=== PATIENT | female | born 1940 | race Caucasian/White ===

== ENCOUNTER 2017-07-26 10:48 | Emergency (ER) | payer MEDICARE ==
[~2017-07-26] VITALS: Ht 152.4 cm; Wt 84.0 kg
[~2017-07-26 10:48] MED LIST: CLON-527 PO; CYCL-1 PO
[2017-07-26 10:51] VITALS: BP 179/115
[2017-07-26] MEDS ORDERED: diazepam 5mg tablet PO ONE (12:25)
[2017-07-26] MEDS ORDERED: ketorolac trometh. 30mg/ml inj. IM ONE (12:25)
[2017-07-26] MEDS ORDERED: NAPR-56 PO (12:46)
[2017-07-26] MEDS ORDERED: DIAZ2TAB PO (12:46)
== END 2017-07-26 13:00 | disposition home or self-care (01) ==
LOC: ER 10:50
DX: M25.512 Pain in left shoulder (principal); M62.838 Other muscle spasm; M54.2 Cervicalgia; I10 Essential (primary) hypertension; J45.909 Unspecified asthma, uncomplicated; F12.10 Cannabis abuse, uncomplicated; Z88.2 Allergy status to sulfonamides; Z88.8 Allergy status to other drugs, medicaments and biological substances
CPT/HCPCS: 96372; 99283; J1885

== ENCOUNTER 2017-08-04 16:47 | Inpatient (IN) | payer MEDICARE ==
[~2017-08-04] VITALS: Ht 152.4 cm; Wt 90.9 kg
[~2017-08-04 16:47] MED LIST changes: +DIAZ2TAB PO; +NAPR-56 PO
[2017-08-04] MEDS ORDERED: atenolol 50mg tablet PO ONE (17:25)
[2017-08-04 17:55] LABS: BASOPHILS % (AUTO) 0.4 % (0-1); EOSINOPHILS # (AUTO) 0.2 X10'3 (0-0.9); EOSINOPHILS % (AUTO) 3.8 % (0-6); HEMATOCRIT 36.9 % (35.0-45.0); LYMPHOCYTES # (AUTO) 1.5 X10'3 (1.1-4.8); LYMPHOCYTES % (AUTO) 25.1 % (21-51); MEAN CORPUSCULAR HEMOGLOBIN 30.3 PG (27.0-31.0); MEAN CORPUSCULAR HGB CONC 35.1 % (33.0-36.5); MEAN CORPUSCULAR VOLUME 86.5 FL (78-98); MEAN PLATELET VOLUME 7.4 FL (7.4-10.4); MONOCYTES # (AUTO) 0.6 X10'3 (0-0.9); MONOCYTES % (AUTO) 9.8 % (2-12); NEUTROPHILS # (AUTO) 3.6 X10'3 (1.8-7.7); NEUTROPHILS % (AUTO) 60.9 % (42-75); PLATELET COUNT 190 X10'3 (140-440); RED BLOOD COUNT 4.27 X10'6 (4.20-5.60); RED CELL DISTRIBUTION WIDTH 13.9 % (11.5-14.5); WHITE BLOOD COUNT 5.9 X10'3 (4.5-11.0)
[2017-08-04 18:09] LABS: ALANINE AMINOTRANSFERASE 16 U/L (12-78); ALBUMIN 3.6 G/DL (3.4-5.0); ALBUMIN/GLOBULIN RATIO 1.1 (1.1-1.5); ALKALINE PHOSPHATASE 72 IU/L (46-116); ANION GAP 8 (8-16); ASPARTATE AMINO TRANSFERASE 20 U/L (10-37); BILIRUBIN,TOTAL 0.4 MG/DL (0.1-1.0); BLOOD UREA NITROGEN 21 MG/DL (7-18); BUN/CREATININE RATIO 19.1 (6.6-38.0); CALCIUM 9.6 MG/DL (8.5-10.1); CHLORIDE 107 MMOL/L (99-107); GLUCOSE 101 MG/DL (70-104); POTASSIUM 3.3 MMOL/L (3.5-5.1); SODIUM 144 MMOL/L (135-145); TOTAL CARBON DIOXIDE 28.7 MMOL/L (24-32); TOTAL PROTEIN 6.9 G/DL (6.4-8.2); eGFR 48 ML/MIN
[2017-08-04] MEDS ORDERED: potassium Cl 20 mEq SR tablet PO ONE (18:25)
[2017-08-04] MEDS ORDERED: normal saline 1000ml 1,000 ML IV SCH (22:02)
[2017-08-04] MEDS ORDERED: potassium Cl 40MEQ/NS 500ml 500 ML IV PRN ×2 (22:05)
[2017-08-04] MEDS ORDERED: mag hydrox/Alum hydrox/simeth 30ml oral suspension PO PRN (22:05)
[2017-08-04] MEDS ORDERED: diphenhydrAMINE 50 mg/ml inj IV PRN (22:05)
[2017-08-04] MEDS ORDERED: diphenhydrAMINE 25mg capsule PO PRN (22:05)
[2017-08-04] MEDS ORDERED: diazepam 2mg tablet PO PRN (22:05)
[2017-08-04] MEDS ORDERED: potassium Cl 20 mEq SR tablet PO PRN ×2 (22:05)
[2017-08-04] MEDS ORDERED: cyclobenzaprine 10mg tablet PO PRN (22:05)
[2017-08-04] MEDS ORDERED: HYDROcodone/acetaminophen 10/325mg tab PO PRN (22:05)
[2017-08-04] MEDS ORDERED: acetaminophen 325mg tablet PO PRN ×2 (22:05)
[2017-08-04] MEDS ORDERED: magnesium hydroxide 30ml (MOM) UD suspension PO PRN (22:05)
[2017-08-04] MEDS ORDERED: morphine 2 MG/ML inj. syringe IV PRN ×2 (22:05)
[2017-08-04] MEDS ORDERED: ondansetron/PF 4mg/2ml inj IV PRN (22:05)
[2017-08-04] MEDS ORDERED: bisacodyl 10mg suppository rectal RC PRN (22:05)
[2017-08-04] MEDS ORDERED: acetaminophen 650mg rectal suppository RC PRN (22:05)
[2017-08-04] MEDS ORDERED: HYDROmorphone 2mg/ml vial IV PRN ×2 (22:05)
[2017-08-04] MEDS ORDERED: metoclopramide 5 mg/ml inj IV PRN (22:05)
[2017-08-04] MEDS ORDERED: lisinopril 10 MG tablet PO ONE (22:10)
[2017-08-04 22:35] LABS: LIPASE 313 U/L (73-393)
[2017-08-04 22:50] LABS: PARTIAL THROMBOPLASTIN TIME 25 SECONDS (22-32); PROTHROMBIN TIME 10.2 SECONDS (9.0-12.0)
[2017-08-04 23:00] VITALS: BP 180/106
[2017-08-05 01:54] LABS: CLARITY,URINE SLIGHTLY CLOUDY (Clear); COLOR,URINE YELLOW (Yellow); GLUCOSE, URINE NEGATIVE (Neg); KETONES,URINE NEGATIVE (Neg); LEUKOCYTE ESTERASE ,URINE MODERATE (Neg); NITRITES, URINE POSITIVE (Neg); OCCULT BLOOD,URINE TRACE-INTACT (Neg); PROTEIN,URINE NEGATIVE (Neg); UROBILINOGEN,URINE 0.2 E.U/dL (0.2-1.0)
[2017-08-05 02:00] VITALS: BP 178/84
[2017-08-05 02:00] LABS: UA COLLECTION TYPE CLN CATCH MIDSTREAM
[2017-08-05 02:08] LABS: URINE AMPHETAMINE SCREEN NEGATIVE (Neg); URINE BARBITUATE SCREEN NEGATIVE (Neg); URINE BENZODIAZEPINES SCREEN NEGATIVE (Neg); URINE CANNABINOID SCREEN POSITIVE (Neg); URINE COCAINE SCREEN NEGATIVE (Neg); URINE METHADONE SCREEN NEGATIVE (Neg); URINE OPIATE SCREEN NEGATIVE (Neg); URINE PHENCYCLIDINE SCREEN NEGATIVE (Neg)
[2017-08-05 02:16] LABS: BACTERIA,URINE 4+ /HPF (Neg); MUCUS STRANDS FEW /LPF (Neg); SQUAMOUS EPITHELIAL CELL,UR MODERATE /LPF (FEW)
[2017-08-05 02:17] LABS: RBC,URINE 0-2 /HPF (0-2)
[2017-08-05] MEDS: hydrALAZINE 20mg/ml inj. IV PRN (02:17)
[2017-08-05] MEDS ORDERED: cefTRIAXone 1g/NS 100ml IVPB 100 ML IV SCH (02:52)
[2017-08-05 02:53] VITALS: BP 136/82
[2017-08-05] MEDS ORDERED: dexamethasone sod phosphate 10mg/ml inj IV STA (05:02)
[2017-08-05 06:00] VITALS: BP 156/84
[2017-08-05 06:44] LABS: BASOPHILS % (AUTO) 0.3 % (0-1); EOSINOPHILS # (AUTO) 0.2 X10'3 (0-0.9); EOSINOPHILS % (AUTO) 3.3 % (0-6); HEMATOCRIT 38.9 % (35.0-45.0); HEMOGLOBIN 13.8 g/dl (12.0-16.0); LYMPHOCYTES # (AUTO) 1.5 X10'3 (1.1-4.8); LYMPHOCYTES % (AUTO) 23.6 % (21-51); MEAN CORPUSCULAR HEMOGLOBIN 30.2 PG (27.0-31.0); MEAN CORPUSCULAR HGB CONC 35.4 % (33.0-36.5); MEAN CORPUSCULAR VOLUME 85.4 FL (78-98); MONOCYTES # (AUTO) 0.6 X10'3 (0-0.9); MONOCYTES % (AUTO) 8.6 % (2-12); NEUTROPHILS # (AUTO) 4.2 X10'3 (1.8-7.7); NEUTROPHILS % (AUTO) 64.2 % (42-75); PLATELET COUNT 210 X10'3 (140-440); RED BLOOD COUNT 4.55 X10'6 (4.20-5.60); RED CELL DISTRIBUTION WIDTH 13.9 % (11.5-14.5); WHITE BLOOD COUNT 6.5 X10'3 (4.5-11.0)
[2017-08-05] MEDS ORDERED: levoTHYROXINE 75mcg tablet PO SCH (07:00)
[2017-08-05] MEDS: heparin, porcine 5000 units/ml vial SQ SCH ×2 (07:06→20:03)
[2017-08-05] MEDS: pantoprazole 40mg Tablet.DR PO SCH (07:06)
[2017-08-05] MEDS: clonazePAM 1mg tablet PO SCH ×3 (07:06→20:03)
[2017-08-05 07:16] LABS: ALANINE AMINOTRANSFERASE 21 U/L (12-78); ALBUMIN 3.9 G/DL (3.4-5.0); ALBUMIN/GLOBULIN RATIO 1.1 (1.1-1.5); ALKALINE PHOSPHATASE 77 IU/L (46-116); ANION GAP 11 (8-16); ASPARTATE AMINO TRANSFERASE 21 U/L (10-37); BILIRUBIN,TOTAL 0.5 MG/DL (0.1-1.0); BLOOD UREA NITROGEN 19 MG/DL (7-18); BUN/CREATININE RATIO 15.8 (6.6-38.0); CALCIUM 9.4 MG/DL (8.5-10.1); CHLORIDE 105 MMOL/L (99-107); GLUCOSE 102 MG/DL (70-104); POTASSIUM 3.5 MMOL/L (3.5-5.1); SODIUM 143 MMOL/L (135-145); TOTAL CARBON DIOXIDE 26.7 MMOL/L (24-32); TOTAL PROTEIN 7.3 G/DL (6.4-8.2); eGFR 44 ML/MIN
[2017-08-05] MEDS: cefTRIAXone 1g/NS 100ml IVPB 100 ML IV SCH (07:49)
[2017-08-05] MEDS: K and/or MAG REPLACEMENT MC SCH (08:00)
[2017-08-05 10:00] VITALS: BP 145/88
[2017-08-05] MEDS: lisinopril 20mg tablet PO SCH (15:38)
[2017-08-05] MEDS: HYDROcodone/acetaminophen 5mg/325mg tablet PO PRN ×2 (15:39→20:02)
[2017-08-05 18:00] VITALS: BP 140/81
[2017-08-05 22:00] VITALS: BP 132/77
[2017-08-06 05:47] LABS: BASOPHILS % (AUTO) 0.3 % (0-1); EOSINOPHILS # (AUTO) 0.1 X10'3 (0-0.9); EOSINOPHILS % (AUTO) 1.5 % (0-6); HEMATOCRIT 32.4 % (35.0-45.0); HEMOGLOBIN 11.5 g/dl (12.0-16.0); LYMPHOCYTES # (AUTO) 1.7 X10'3 (1.1-4.8); LYMPHOCYTES % (AUTO) 19.8 % (21-51); MEAN CORPUSCULAR HEMOGLOBIN 30.5 PG (27.0-31.0); MEAN CORPUSCULAR HGB CONC 35.4 % (33.0-36.5); MEAN CORPUSCULAR VOLUME 86.2 FL (78-98); MEAN PLATELET VOLUME 8.1 FL (7.4-10.4); MONOCYTES # (AUTO) 0.6 X10'3 (0-0.9); MONOCYTES % (AUTO) 7.1 % (2-12); NEUTROPHILS % (AUTO) 71.3 % (42-75); PLATELET COUNT 179 X10'3 (140-440); RED BLOOD COUNT 3.76 X10'6 (4.20-5.60); RED CELL DISTRIBUTION WIDTH 13.4 % (11.5-14.5); WHITE BLOOD COUNT 8.4 X10'3 (4.5-11.0)
[2017-08-06 06:00] VITALS: BP 143/69
[2017-08-06 06:26] LABS: ALANINE AMINOTRANSFERASE 22 U/L (12-78); ALBUMIN 3.4 G/DL (3.4-5.0); ALBUMIN/GLOBULIN RATIO 1.1 (1.1-1.5); ALKALINE PHOSPHATASE 62 IU/L (46-116); ANION GAP 9 (8-16); ASPARTATE AMINO TRANSFERASE 20 U/L (10-37); BILIRUBIN,TOTAL 0.3 MG/DL (0.1-1.0); BLOOD UREA NITROGEN 32 MG/DL (7-18); BUN/CREATININE RATIO 24.6 (6.6-38.0); CALCIUM 9.1 MG/DL (8.5-10.1); CHLORIDE 106 MMOL/L (99-107); GLUCOSE 95 MG/DL (70-104); POTASSIUM 3.6 MMOL/L (3.5-5.1); SODIUM 141 MMOL/L (135-145); TOTAL CARBON DIOXIDE 25.8 MMOL/L (24-32); TOTAL PROTEIN 6.5 G/DL (6.4-8.2); eGFR 40 ML/MIN
[2017-08-06] MEDS: K and/or MAG REPLACEMENT MC SCH (07:34)
[2017-08-06] MEDS: pantoprazole 40mg Tablet.DR PO SCH (07:42)
[2017-08-06] MEDS: levoTHYROXINE 100mcg tablet PO SCH (07:42)
[2017-08-06] MEDS: clonazePAM 1mg tablet PO SCH ×3 (07:42→22:07)
[2017-08-06] MEDS: lisinopril 20mg tablet PO SCH (07:43)
[2017-08-06] MEDS: heparin, porcine 5000 units/ml vial SQ SCH ×2 (07:43→20:39)
[2017-08-06] MEDS: cefTRIAXone 1g/NS 100ml IVPB 100 ML IV SCH (07:44)
[2017-08-06 09:18] LABS: TRIIODOTHYRONINE (T3) 47 ng/dL (71-180)
[2017-08-06 10:30] VITALS: BP 154/67
[2017-08-06] MEDS: HYDROcodone/acetaminophen 5mg/325mg tablet PO PRN (11:47)
[2017-08-06 17:17] VITALS: BP 167/108
[2017-08-06] MEDS: lactobacillus rhamnosus 10,000 MMU CELLS/CAPSULE PO SCH (17:19)
[2017-08-06] MEDS: hydrALAZINE 20mg/ml inj. IV PRN (17:19)
[2017-08-06] MEDS: aspirin 81mg tablet.DR PO SCH (17:52)
[2017-08-06 18:00] VITALS: BP 167/108
[2017-08-06 20:09] LABS: CHOL/HDL RATIO 8.1 (0.00-4.99); CHOLESTEROL 275 MG/DL (0-200); HDL CHOLESTEROL 34 MG/DL (35-60); LDL CHOLESTEROL 180 MG/DL (50-100); TRIGLYCERIDES 316 MG/DL (20-135)
[2017-08-06 22:10] VITALS: BP 153/86
[2017-08-07 02:30] VITALS: BP 156/89
[2017-08-07 07:06] LABS: BASOPHILS % (AUTO) 0.3 % (0-1); EOSINOPHILS # (AUTO) 0.2 X10'3 (0-0.9); EOSINOPHILS % (AUTO) 3.1 % (0-6); HEMATOCRIT 37.1 % (35.0-45.0); HEMOGLOBIN 13.1 g/dl (12.0-16.0); LYMPHOCYTES # (AUTO) 1.8 X10'3 (1.1-4.8); LYMPHOCYTES % (AUTO) 27.8 % (21-51); MEAN CORPUSCULAR HEMOGLOBIN 30.5 PG (27.0-31.0); MEAN CORPUSCULAR HGB CONC 35.4 % (33.0-36.5); MEAN CORPUSCULAR VOLUME 86.1 FL (78-98); MEAN PLATELET VOLUME 8.2 FL (7.4-10.4); MONOCYTES # (AUTO) 0.5 X10'3 (0-0.9); MONOCYTES % (AUTO) 7.6 % (2-12); NEUTROPHILS % (AUTO) 61.2 % (42-75); PLATELET COUNT 188 X10'3 (140-440); RED BLOOD COUNT 4.31 X10'6 (4.20-5.60); RED CELL DISTRIBUTION WIDTH 13.7 % (11.5-14.5); WHITE BLOOD COUNT 6.5 X10'3 (4.5-11.0)
[2017-08-07 07:40] LABS: ALANINE AMINOTRANSFERASE 33 U/L (12-78); ALBUMIN 3.7 G/DL (3.4-5.0); ALBUMIN/GLOBULIN RATIO 1.1 (1.1-1.5); ALKALINE PHOSPHATASE 70 IU/L (46-116); ANION GAP 11 (8-16); ASPARTATE AMINO TRANSFERASE 26 U/L (10-37); BILIRUBIN,TOTAL 0.3 MG/DL (0.1-1.0); BLOOD UREA NITROGEN 24 MG/DL (7-18); BUN/CREATININE RATIO 21.8 (6.6-38.0); CALCIUM 8.9 MG/DL (8.5-10.1); CHLORIDE 105 MMOL/L (99-107); GLUCOSE 82 MG/DL (70-104); POTASSIUM 3.4 MMOL/L (3.5-5.1); SODIUM 143 MMOL/L (135-145); TOTAL CARBON DIOXIDE 26.9 MMOL/L (24-32); TOTAL PROTEIN 7.1 G/DL (6.4-8.2); eGFR 48 ML/MIN
[2017-08-07] MEDS: K and/or MAG REPLACEMENT MC SCH (08:00)
[2017-08-07] MEDS: aspirin 81mg tablet.DR PO SCH (09:07)
[2017-08-07] MEDS: lactobacillus rhamnosus 10,000 MMU CELLS/CAPSULE PO SCH ×2 (09:07→17:19)
[2017-08-07] MEDS: lisinopril 20mg tablet PO SCH (09:07)
[2017-08-07] MEDS: heparin, porcine 5000 units/ml vial SQ SCH ×2 (09:07→20:50)
[2017-08-07] MEDS: clonazePAM 1mg tablet PO SCH ×3 (09:07→20:48)
[2017-08-07] MEDS: cefTRIAXone 1g/NS 100ml IVPB 100 ML IV SCH (09:07)
[2017-08-07] MEDS: amLODIPine 5mg tablet PO SCH (09:08)
[2017-08-07] MEDS: pantoprazole 40mg Tablet.DR PO SCH (09:08)
[2017-08-07] MEDS: levoTHYROXINE 100mcg tablet PO SCH (09:08)
[2017-08-07 10:00] VITALS: BP 145/91
[2017-08-07] MEDS ORDERED: CefTRIAXone/D5W-Rocephin 1gm 50 ML IV SCH (11:56)
[2017-08-07 18:00] VITALS: BP 129/79
[2017-08-07 22:00] VITALS: BP 138/71
[2017-08-08 02:00] VITALS: BP 106/63
[2017-08-08 06:50] LABS: BASOPHILS % (AUTO) 0.8 % (0-1); EOSINOPHILS # (AUTO) 0.3 X10'3 (0-0.9); EOSINOPHILS % (AUTO) 5.6 % (0-6); HEMATOCRIT 35.6 % (35.0-45.0); HEMOGLOBIN 12.6 g/dl (12.0-16.0); LYMPHOCYTES # (AUTO) 1.2 X10'3 (1.1-4.8); LYMPHOCYTES % (AUTO) 24.7 % (21-51); MEAN CORPUSCULAR HEMOGLOBIN 30.4 PG (27.0-31.0); MEAN CORPUSCULAR HGB CONC 35.4 % (33.0-36.5); MEAN CORPUSCULAR VOLUME 85.8 FL (78-98); MEAN PLATELET VOLUME 7.8 FL (7.4-10.4); MONOCYTES # (AUTO) 0.5 X10'3 (0-0.9); MONOCYTES % (AUTO) 9.1 % (2-12); NEUTROPHILS % (AUTO) 59.8 % (42-75); PLATELET COUNT 166 X10'3 (140-440); RED BLOOD COUNT 4.15 X10'6 (4.20-5.60); RED CELL DISTRIBUTION WIDTH 13.9 % (11.5-14.5)
[2017-08-08 07:29] LABS: ALANINE AMINOTRANSFERASE 31 U/L (12-78); ALBUMIN 3.3 G/DL (3.4-5.0); ALKALINE PHOSPHATASE 68 IU/L (46-116); ANION GAP 8 (8-16); ASPARTATE AMINO TRANSFERASE 24 U/L (10-37); BILIRUBIN,TOTAL 0.3 MG/DL (0.1-1.0); BLOOD UREA NITROGEN 24 MG/DL (7-18); CALCIUM 8.7 MG/DL (8.5-10.1); CHLORIDE 105 MMOL/L (99-107); GLUCOSE 96 MG/DL (70-104); POTASSIUM 3.7 MMOL/L (3.5-5.1); SODIUM 138 MMOL/L (135-145); TOTAL CARBON DIOXIDE 25.2 MMOL/L (24-32); TOTAL PROTEIN 6.5 G/DL (6.4-8.2); eGFR 44 ML/MIN
[2017-08-08] MEDS: K and/or MAG REPLACEMENT MC SCH (07:36)
[2017-08-08] MEDS: lactobacillus rhamnosus 10,000 MMU CELLS/CAPSULE PO SCH (07:44)
[2017-08-08] MEDS: levoTHYROXINE 100mcg tablet PO SCH (07:44)
[2017-08-08] MEDS: pantoprazole 40mg Tablet.DR PO SCH (07:44)
[2017-08-08] MEDS: lisinopril 20mg tablet PO SCH (07:44)
[2017-08-08] MEDS: heparin, porcine 5000 units/ml vial SQ SCH (07:44)
[2017-08-08] MEDS: amLODIPine 5mg tablet PO SCH (07:44)
[2017-08-08] MEDS: aspirin 81mg tablet.DR PO SCH (07:44)
[2017-08-08] MEDS: clonazePAM 1mg tablet PO SCH ×2 (07:48→13:58)
[2017-08-08] MEDS ORDERED: atorvastatin 20mg tablet PO SCH (08:00)
[2017-08-08 10:00] VITALS: BP 160/102
[2017-08-08] MEDS ORDERED: ASPI-1071 PO (11:49)
[2017-08-08] MEDS ORDERED: LEVO100T9 PO (11:49)
[2017-08-08] MEDS ORDERED: LISI-600 PO (11:49)
[2017-08-08] MEDS ORDERED: ATOR20TA66 PO (11:49)
[2017-08-08] MEDS ORDERED: AMLO5TAB16 PO (11:49)
[2017-08-08] MEDS ORDERED: LEVO500T2 PO (12:06)
== END 2017-08-08 15:30 | disposition home or self-care (01) | DRG 70 ==
LOC: ER 16:48 → EEVIPCON 22:02 → ED HOLD 22:02 → ORTHO 4S 22:56
PROVIDERS: ADMIT Family Medicine; ATTEND Family Medicine
DX: G93.40 Encephalopathy, unspecified (principal); I63.9 Cerebral infarction, unspecified; N17.9 Acute kidney failure, unspecified; I16.1 Hypertensive emergency; N39.0 Urinary tract infection, site not specified; E87.6 Hypokalemia; E03.9 Hypothyroidism, unspecified; F31.9 Bipolar disorder, unspecified; B96.20 Unspecified Escherichia coli [E. coli] as the cause of diseases classified elsewhere; F41.9 Anxiety disorder, unspecified; E78.5 Hyperlipidemia, unspecified; E86.0 Dehydration; I12.9 Hypertensive chronic kidney disease with stage 1 through stage 4 chronic kidney disease, or unspecified chronic kidney disease; J45.909 Unspecified asthma, uncomplicated; N18.9 Chronic kidney disease, unspecified; F12.90 Cannabis use, unspecified, uncomplicated; W03.XXXA Other fall on same level due to collision with another person, initial encounter; Z90.710 Acquired absence of both cervix and uterus; Z91.14 Patient's other noncompliance with medication regimen; Z91.19 Patient's noncompliance with other medical treatment and regimen; Z88.2 Allergy status to sulfonamides; Z88.8 Allergy status to other drugs, medicaments and biological substances; Z79.899 Other long term (current) drug therapy; Y08.89XA Assault by other specified means, initial encounter; Y93.89 Activity, other specified; Y92.89 Other specified places as the place of occurrence of the external cause; Y99.8 Other external cause status
CPT/HCPCS: 36415; 70450; 70551; 71045; 80053; 80061; 80305; 81001; 83690; 83735; 83880; 84439; 84443; 84479; 84480; 85025; 85610; 85730; 87070; 87077; 87088; 87186; 93306; 93880; 97116; 97162; 97530; 99285; J0360; J0696; J1100; J1644; J7030

== ENCOUNTER 2017-08-12 16:28 | Emergency (ER) | payer MEDICARE ==
[~2017-08-12] VITALS: Ht 152.4 cm; Wt 84.1 kg
[~2017-08-12 16:28] MED LIST changes: +AMLO5TAB16 PO; +ASPI-1071 PO; +ATOR20TA66 PO; -CLON-527 PO; +LEVO100T9 PO; +LEVO500T2 PO; +LISI-600 PO; -NAPR-56 PO
[2017-08-12 17:00] LABS: BASOPHILS % (AUTO) 0.5 % (0-1); EOSINOPHILS # (AUTO) 0.2 X10'3 (0-0.9); EOSINOPHILS % (AUTO) 3.2 % (0-6); HEMATOCRIT 37.6 % (35.0-45.0); HEMOGLOBIN 13.1 g/dl (12.0-16.0); LYMPHOCYTES # (AUTO) 1.7 X10'3 (1.1-4.8); MEAN CORPUSCULAR HEMOGLOBIN 30.4 PG (27.0-31.0); MEAN CORPUSCULAR HGB CONC 34.8 % (33.0-36.5); MEAN CORPUSCULAR VOLUME 87.4 FL (78-98); MEAN PLATELET VOLUME 7.7 FL (7.4-10.4); MONOCYTES # (AUTO) 0.6 X10'3 (0-0.9); MONOCYTES % (AUTO) 8.7 % (2-12); NEUTROPHILS # (AUTO) 4.8 X10'3 (1.8-7.7); NEUTROPHILS % (AUTO) 64.6 % (42-75); PLATELET COUNT 206 X10'3 (140-440); RED CELL DISTRIBUTION WIDTH 13.7 % (11.5-14.5); WHITE BLOOD COUNT 7.4 X10'3 (4.5-11.0)
[2017-08-12 17:12] LABS: PARTIAL THROMBOPLASTIN TIME 24 SECONDS (22-32); PROTHROMBIN TIME 9.9 SECONDS (9.0-12.0)
[2017-08-12 17:17] LABS: ALANINE AMINOTRANSFERASE 30 U/L (12-78); ALBUMIN 4.2 G/DL (3.4-5.0); ALBUMIN/GLOBULIN RATIO 1.2 (1.1-1.5); ALKALINE PHOSPHATASE 81 IU/L (46-116); ANION GAP 9 (8-16); ASPARTATE AMINO TRANSFERASE 22 U/L (10-37); BILIRUBIN,TOTAL 0.4 MG/DL (0.1-1.0); BLOOD UREA NITROGEN 22 MG/DL (7-18); CALCIUM 9.7 MG/DL (8.5-10.1); CHLORIDE 108 MMOL/L (99-107); GLUCOSE 100 MG/DL (70-104); POTASSIUM 3.7 MMOL/L (3.5-5.1); SODIUM 144 MMOL/L (135-145); TOTAL CARBON DIOXIDE 27.2 MMOL/L (24-32); TOTAL PROTEIN 7.8 G/DL (6.4-8.2); eGFR 54 ML/MIN
[2017-08-12] MEDS ORDERED: hydrALAZINE 25 MG tablet PO SCH (17:40)
[2017-08-12] MEDS ORDERED: hydrALAZINE 25 MG tablet PO ONE (17:40)
[2017-08-12] MEDS ORDERED: LORazepam 1 MG tablet PO ONE (17:40)
[2017-08-12 19:00] VITALS: BP 188/102
== END 2017-08-12 19:01 | disposition home or self-care (01) ==
LOC: ER 16:28
DX: I10 Essential (primary) hypertension (principal); F41.9 Anxiety disorder, unspecified; F31.9 Bipolar disorder, unspecified; F12.10 Cannabis abuse, uncomplicated; J45.909 Unspecified asthma, uncomplicated; Z90.710 Acquired absence of both cervix and uterus; Z86.73 Personal history of transient ischemic attack (TIA), and cerebral infarction without residual deficits; Z88.8 Allergy status to other drugs, medicaments and biological substances; Z88.2 Allergy status to sulfonamides; Z79.82 Long term (current) use of aspirin; Z79.899 Other long term (current) drug therapy
CPT/HCPCS: 36415; 71045; 80053; 84484; 85025; 85610; 85730; 93005; 99285

== ENCOUNTER 2019-01-28 12:33 | Inpatient (IN) | payer MEDICARE ==
[~2019-01-28] VITALS: Ht 152.4 cm; Wt 86.4 kg
[~2019-01-28 12:33] MED LIST changes: -LEVO500T2 PO
[2019-01-28] MEDS ORDERED: normal saline 1000ML IV soln IVB ONE (13:15)
[2019-01-28 13:58] LABS: BASOPHILS % (AUTO) 0.5 % (0-1); EOSINOPHILS # (AUTO) 0.2 X10'3 (0-0.9); EOSINOPHILS % (AUTO) 2.3 % (0-6); HEMATOCRIT 43.9 % (35.0-45.0); HEMOGLOBIN 14.8 g/dl (12.0-16.0); LYMPHOCYTES # (AUTO) 1.5 X10'3 (1.1-4.8); LYMPHOCYTES % (AUTO) 16.5 % (21-51); MEAN CORPUSCULAR HEMOGLOBIN 29.4 PG (27.0-31.0); MEAN CORPUSCULAR HGB CONC 33.8 g/dL (33.0-36.5); MEAN CORPUSCULAR VOLUME 87.1 FL (78-98); MONOCYTES # (AUTO) 0.7 X10'3 (0-0.9); MONOCYTES % (AUTO) 8.2 % (2-12); NEUTROPHILS # (AUTO) 6.4 X10'3 (1.8-7.7); NEUTROPHILS % (AUTO) 72.5 % (42-75); PLATELET COUNT 205 X10'3 (140-440); RED BLOOD COUNT 5.04 X10'6 (4.20-5.60); RED CELL DISTRIBUTION WIDTH 14.4 % (11.5-14.5); WHITE BLOOD COUNT 8.9 X10'3 (4.5-11.0)
[2019-01-28 14:12] LABS: ALANINE AMINOTRANSFERASE 30 U/L (12-78); ALBUMIN 3.9 G/DL (3.4-5.0); ALKALINE PHOSPHATASE 130 IU/L (46-116); ANION GAP 11 (8-16); ASPARTATE AMINO TRANSFERASE 27 U/L (10-37); BILIRUBIN,TOTAL 0.9 MG/DL (0.1-1.0); BLOOD UREA NITROGEN 18 MG/DL (7-18); BUN/CREATININE RATIO 15.3 (6.6-38.0); CALCIUM 9.5 MG/DL (8.5-10.1); CHLORIDE 105 MMOL/L (99-107); CREATININE 1.18 MG/DL (0.40-0.90); GLUCOSE 118 MG/DL (70-104); PARTIAL THROMBOPLASTIN TIME 26 SECONDS (22-32); POTASSIUM 3.3 MMOL/L (3.5-5.1); SODIUM 139 MMOL/L (135-145); TOTAL CARBON DIOXIDE 23.5 MMOL/L (24-32); eGFR 45 ML/MIN
[2019-01-28 14:14] LABS: LACTIC SEPSIS 1.4 MMOL/L (0.4-2.0)
[2019-01-28 14:15] LABS: TROPONIN I < 0.04 NG/ML (0.0-0.05)
[2019-01-28 14:22] LABS: ETHANOL < 0.010 GM/DL (0.0-0.010)
[2019-01-28 14:22] LABS: CLARITY,URINE SLIGHTLY CLOUDY (Clear); COLOR,URINE YELLOW (Yellow); GLUCOSE, URINE NEGATIVE (Neg); KETONES,URINE NEGATIVE (Neg); LEUKOCYTE ESTERASE ,URINE NEGATIVE (Neg); NITRITES, URINE NEGATIVE (Neg); OCCULT BLOOD,URINE TRACE-INTACT (Neg); PROTEIN,URINE 100 mg/dl (Neg)
[2019-01-28 14:24] LABS: UA COLLECTION TYPE STRAIGHT CATH
[2019-01-28 14:28] LABS: SQUAMOUS EPITHELIAL CELL,UR MODERATE /LPF (FEW)
[2019-01-28 14:29] LABS: BACTERIA,URINE NONE SEEN /HPF (Neg)
[2019-01-28 14:30] LABS: MUCUS STRANDS FEW /LPF (Neg)
[2019-01-28 14:35] LABS: URINE AMPHETAMINE SCREEN NEGATIVE (Neg); URINE BARBITUATE SCREEN NEGATIVE (Neg); URINE BENZODIAZEPINES SCREEN NEGATIVE (Neg); URINE CANNABINOID SCREEN NEGATIVE (Neg); URINE COCAINE SCREEN NEGATIVE (Neg); URINE METHADONE SCREEN NEGATIVE (Neg); URINE OPIATE SCREEN NEGATIVE (Neg); URINE PHENCYCLIDINE SCREEN NEGATIVE (Neg)
--- NOTE | 2019-01-28 15:40 | NUR ---
YONATAN'S NUMBER DYANA: [phone]
--- NOTE | 2019-01-28 17:04 | NUR ---
LEFT SON A MESSAGE, TO CALL US BACK
[2019-01-28] MEDS ORDERED: NO HOME MEDS (17:15)
[2019-01-28] MEDS ORDERED: aspirin 325mg tablet PO ONE (17:35)
[2019-01-28] MEDS ORDERED: acetaminophen 325mg tablet PO PRN (17:55)
[2019-01-28] MEDS ORDERED: ondansetron/PF 4mg/2ml inj IV PRN (17:55)
[2019-01-28] MEDS ORDERED: magnesium hydroxide 30ml (MOM) UD suspension PO PRN (17:55)
[2019-01-28] MEDS ORDERED: mag hydrox/Alum hydrox/simeth 30ml oral suspension PO PRN (17:55)
[2019-01-28 18:40] LABS: CHOL/HDL RATIO 6.3 (0.00-4.99); CHOLESTEROL 244 MG/DL (0-200); HDL CHOLESTEROL 39 MG/DL (35-60); LDL CHOLESTEROL 185 MG/DL (50-100); TRIGLYCERIDES 161 MG/DL (20-135)
[2019-01-28] MEDS: normal saline 1000ml 1,000 ML IV SCH (18:44)
--- NOTE | 2019-01-28 20:00 | NUR ---
PT ARRIVED TO 4022A FROM ER. PT HAS BEEN ORIENTED TO THE ROOM. RECEIVED REPORT FROM KATY BARRAGAN PRIOR TO PT'S ARRIVAL.
[2019-01-28 20:10] VITALS: BP 215/83
--- NOTE | 2019-01-28 20:30 | NUR ---
BP 215/83. PT WILL NOT STILL. WILL TRY TO GET VS LATER. Addendum: 01/28/19 at 2307 by Adrienne Starr RN Amended: Links added.
[2019-01-28] MEDS: heparin, porcine 5000 units/ml vial SQ SCH (21:44)
[2019-01-28 22:00] VITALS: BP 141/92
--- NOTE | 2019-01-28 22:58 | NUR ---
PT HAD A NOTE OF CAREGIVER'S NUMBER ALDO BERNARDO [phone].
[2019-01-28 23:05] VITALS: BP 215/83
[2019-01-29 02:00] VITALS: BP 178/86
[2019-01-29] MEDS ORDERED: magnesium Cl slow-release 64mg tablet PO PRN (02:50)
[2019-01-29] MEDS ORDERED: potassium Cl 20 mEq SR tablet PO PRN (02:50)
[2019-01-29] MEDS ORDERED: magnesium 4gm in 100ml NS 100 ML IV PRN (02:50)
--- NOTE | 2019-01-29 02:51 | NUR ---
4022A JUDITH MULTANI 78 HERE FOR STROKE IS HAVING 2ND DGREE HB TYPE 1. PT WAS SLEEPING. BP 178/86 HR52 [address] NOW[address] FOX NOTIFIED. POTASSIUM PROTOCOL ORDERED. AND ADVISED TO MONITOR.
[2019-01-29] MEDS: potassium CL 10mEq/100ml bag 100 ML IV PRN ×2 (03:38→05:58)
[2019-01-29] MEDS: normal saline 1000ml 1,000 ML IV SCH ×3 (03:54→23:54)
[2019-01-29 06:00] VITALS: BP 184/83
--- NOTE | 2019-01-29 06:04 | NUR ---
TELE CALLED TO NOTIFIY PT'S HR IN HIGH 30'S WITH 2ND DEGREE HB. WOKE UP PT AND TOOK BP. 148/105 HR58 98%RA ASYMPTOMATIC. WILL CONTINUE TO MONITOR.
[2019-01-29 06:13] LABS: BASOPHILS % (AUTO) 0.6 % (0-1); EOSINOPHILS # (AUTO) 0.2 X10'3 (0-0.9); EOSINOPHILS % (AUTO) 3.3 % (0-6); HEMATOCRIT 41.3 % (35.0-45.0); HEMOGLOBIN 13.9 g/dl (12.0-16.0); LYMPHOCYTES # (AUTO) 1.3 X10'3 (1.1-4.8); LYMPHOCYTES % (AUTO) 21.4 % (21-51); MEAN CORPUSCULAR HEMOGLOBIN 29.5 PG (27.0-31.0); MEAN CORPUSCULAR HGB CONC 33.8 g/dL (33.0-36.5); MEAN CORPUSCULAR VOLUME 87.2 FL (78-98); MEAN PLATELET VOLUME 8.1 FL (7.4-10.4); MONOCYTES # (AUTO) 0.5 X10'3 (0-0.9); MONOCYTES % (AUTO) 8.8 % (2-12); NEUTROPHILS % (AUTO) 65.9 % (42-75); PLATELET COUNT 169 X10'3 (140-440); RED BLOOD COUNT 4.73 X10'6 (4.20-5.60); RED CELL DISTRIBUTION WIDTH 13.9 % (11.5-14.5); WHITE BLOOD COUNT 6.1 X10'3 (4.5-11.0)
--- NOTE | 2019-01-29 06:35 | NUR ---
Problems reprioritized. Patient report given, questions answered & plan of care reviewed with KATY TIPTON.
[2019-01-29 06:41] LABS: ALBUMIN 3.3 G/DL (3.4-5.0); ANION GAP 16 (8-16); BLOOD UREA NITROGEN 13 MG/DL (7-18); BUN/CREATININE RATIO 13.8 (6.6-38.0); CALCIUM 8.7 MG/DL (8.5-10.1); CHLORIDE 107 MMOL/L (99-107); CREATININE 0.94 MG/DL (0.40-0.90); GLUCOSE 99 MG/DL (70-104); MAGNESIUM 1.8 MG/DL (1.5-2.4); POTASSIUM 3.2 MMOL/L (3.5-5.1); SODIUM 143 MMOL/L (135-145); TOTAL CARBON DIOXIDE 20.3 MMOL/L (24-32); eGFR 58 ML/MIN
[2019-01-29] MEDS: atorvastatin 20mg tablet PO SCH (08:06)
[2019-01-29] MEDS: aspirin 81mg tablet.DR PO SCH (08:06)
[2019-01-29] MEDS: heparin, porcine 5000 units/ml vial SQ SCH ×2 (08:07→19:25)
[2019-01-29 10:00] VITALS: BP 186/91
[2019-01-29] MEDS: levoTHYROXINE 100mcg tablet PO SCH (11:16)
[2019-01-29] MEDS: potassium Cl 20 mEq SR tablet PO PRN ×2 (11:19→19:25)
[2019-01-29] MEDS ORDERED: LORazepam 2 mg/ml vial IV ONE (12:25)
[2019-01-29] MEDS ORDERED: lisinopril 10 MG tablet PO ONE (12:35)
[2019-01-29 14:00] VITALS: BP 132/74
[2019-01-29 18:00] VITALS: BP 194/108
--- NOTE | 2019-01-29 18:06 | NUR ---
Problems reprioritized. Patient report given, questions answered & plan of care reviewed with Adrienne BURNS.
--- NOTE | 2019-01-29 18:31 | NUR ---
Patient in room ORTHO 4022. I have received report from KATY TIPTON and had the opportunity to ask questions and assume patient care.
--- NOTE | 2019-01-29 19:16 | NUR ---
PT IS IN A BAD MOOD. NOT TALKING. DINNER TRAY IS IN FRONT BUT NOT EATING. SAID WILL EAT LATER. SO NOT ABLE TO COVER DINNER FOR DM PROTOCOL NOW. Addendum: 01/29/19 at 1918 by Adrienne Starr RN WRONG PATIENT!
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
[2019-01-29 22:00] VITALS: BP 153/82
[2019-01-30] VITALS (8 sets, daily range): BP systolic 152–228; BP diastolic 64–107
[2019-01-30] MEDS: potassium Cl 20 mEq SR tablet PO PRN ×2 (00:03→04:00)
--- NOTE | 2019-01-30 02:35 | NUR ---
TELEMETRY CALLED TO REPORT THAT PT HAS HAD A 2ND DEGREE TYPE 2 BLOCK WITH BRADYCARDIA INTO THE 30s "BRIEFLY". NOTIFIED PRIMARY NURSE AND CHARGE NURSE. PT IS ASYMPTOMATIC AT THIS TIME.
[2019-01-30 06:01] LABS: ALBUMIN 3.2 G/DL (3.4-5.0); ANION GAP 10 (8-16); BLOOD UREA NITROGEN 15 MG/DL (7-18); BUN/CREATININE RATIO 13.6 (6.6-38.0); CALCIUM 8.9 MG/DL (8.5-10.1); CHLORIDE 104 MMOL/L (99-107); GLUCOSE 112 MG/DL (70-104); MAGNESIUM 1.7 MG/DL (1.5-2.4); POTASSIUM 3.9 MMOL/L (3.5-5.1); SODIUM 137 MMOL/L (135-145); eGFR 48 ML/MIN
[2019-01-30 06:10] LABS: BASOPHILS % (AUTO) 0.7 % (0-1); EOSINOPHILS # (AUTO) 0.2 X10'3 (0-0.9); EOSINOPHILS % (AUTO) 3.5 % (0-6); HEMATOCRIT 40.8 % (35.0-45.0); HEMOGLOBIN 13.6 g/dl (12.0-16.0); LYMPHOCYTES # (AUTO) 1.6 X10'3 (1.1-4.8); MEAN CORPUSCULAR HEMOGLOBIN 28.9 PG (27.0-31.0); MEAN CORPUSCULAR HGB CONC 33.3 g/dL (33.0-36.5); MEAN CORPUSCULAR VOLUME 86.7 FL (78-98); MEAN PLATELET VOLUME 8.3 FL (7.4-10.4); MONOCYTES # (AUTO) 0.6 X10'3 (0-0.9); MONOCYTES % (AUTO) 9.5 % (2-12); NEUTROPHILS # (AUTO) 3.4 X10'3 (1.8-7.7); NEUTROPHILS % (AUTO) 58.3 % (42-75); PLATELET COUNT 178 X10'3 (140-440); RED BLOOD COUNT 4.71 X10'6 (4.20-5.60); RED CELL DISTRIBUTION WIDTH 14.3 % (11.5-14.5); WHITE BLOOD COUNT 5.8 X10'3 (4.5-11.0)
--- NOTE | 2019-01-30 06:20 | NUR ---
Problems reprioritized. Patient report given, questions answered & plan of care reviewed with KATY TIPTON.
[2019-01-30] MEDS ORDERED: lisinopril 10 MG tablet PO SCH (08:00)
[2019-01-30] MEDS: aspirin 81mg tablet.DR PO SCH (08:00)
[2019-01-30] MEDS: levoTHYROXINE 100mcg tablet PO SCH (08:00)
[2019-01-30] MEDS: atorvastatin 20mg tablet PO SCH (08:00)
[2019-01-30] MEDS: heparin, porcine 5000 units/ml vial SQ SCH ×2 (08:02→19:29)
[2019-01-30] MEDS ORDERED: levoTHYROXINE sod inj. 100mcg/5 ml vial IV ONE (12:05)
[2019-01-30] MEDS ORDERED: amLODIPine 5mg tablet PO ONE (13:35)
[2019-01-30] MEDS ORDERED: dexamethasone 4mg/ml inj IM SCH (16:00)
--- NOTE | 2019-01-30 18:11 | NUR ---
Visitor Linda in room, asking questions about patients care and "why the home health care social worker didn't call her" She asked her name, I did not give the number. Patient pulled out IV per Aide.
[2019-01-30] MEDS: normal saline 1000ml 1,000 ML IV SCH ×2 (18:30→20:43)
--- NOTE | 2019-01-30 18:30 | NUR ---
noted elevated BP. pt has just pulled out IV. unable to restart at this time - pt is a hard stick. called sort operations supervisor and ER to request assistance. will give oral BP med
[2019-01-30] MEDS: lisinopril 20mg tablet PO SCH (19:31)
--- NOTE | 2019-01-30 19:41 | NUR ---
talked to son Luan at [phone]. pt has been living with him for the last year. he has tried to get [facility] hours but unable to get any primary physician to sign off on hours. States that he works as wood cut engraver all day and his cousin feeds pt at home. last week she started becoming incontinent and unable to walk so he brought her to walk in and ultimately the hospital. Luan is hoping to get IHSS hours approved after discharge and return patient to his home with his friend Mary Grace to care for pt. HOWEVER in talking with patient she stated that she is looking for an alternate place to live. "I'm not stupid" was her reply to if she wanted to return to Luan's house. educated on discharge routine and assistance with discharge planning, safety and social worker health services assistance, even with rehab options after patient has been stabilized. pt agreeable to rehab.
[2019-01-30] MEDS: dexamethasone 4mg/ml inj IV SCH (20:42)
[2019-01-30] MEDS: hydrALAZINE 20mg/ml inj. IV PRN (20:43)
[2019-01-31] VITALS (8 sets, daily range): BP systolic 122–170; BP diastolic 44–108
[2019-01-31 06:10] LABS: BASOPHILS % (AUTO) 0.5 % (0-1); EOSINOPHILS % (AUTO) 0.1 % (0-6); HEMATOCRIT 42.5 % (35.0-45.0); HEMOGLOBIN 14.5 g/dl (12.0-16.0); LYMPHOCYTES # (AUTO) 0.8 X10'3 (1.1-4.8); LYMPHOCYTES % (AUTO) 14.4 % (21-51); MEAN CORPUSCULAR HEMOGLOBIN 29.4 PG (27.0-31.0); MEAN CORPUSCULAR VOLUME 86.5 FL (78-98); MEAN PLATELET VOLUME 8.3 FL (7.4-10.4); MONOCYTES # (AUTO) 0.2 X10'3 (0-0.9); MONOCYTES % (AUTO) 3.7 % (2-12); NEUTROPHILS # (AUTO) 4.5 X10'3 (1.8-7.7); NEUTROPHILS % (AUTO) 81.3 % (42-75); PLATELET COUNT 196 X10'3 (140-440); RED BLOOD COUNT 4.91 X10'6 (4.20-5.60); RED CELL DISTRIBUTION WIDTH 14.5 % (11.5-14.5); WHITE BLOOD COUNT 5.6 X10'3 (4.5-11.0)
[2019-01-31 06:21] LABS: ALBUMIN 3.2 G/DL (3.4-5.0); ANION GAP 12 (8-16); BLOOD UREA NITROGEN 15 MG/DL (7-18); BUN/CREATININE RATIO 15.3 (6.6-38.0); CALCIUM 9.3 MG/DL (8.5-10.1); CHLORIDE 108 MMOL/L (99-107); CREATININE 0.98 MG/DL (0.40-0.90); GLUCOSE 132 MG/DL (70-104); MAGNESIUM 1.8 MG/DL (1.5-2.4); POTASSIUM 4.2 MMOL/L (3.5-5.1); SODIUM 141 MMOL/L (135-145); TOTAL CARBON DIOXIDE 21.1 MMOL/L (24-32); eGFR 55 ML/MIN
--- NOTE | 2019-01-31 06:37 | NUR ---
reported to days. noted pt BP improving this am. noted turn q2 and incont.
[2019-01-31] MEDS ORDERED: levoTHYROXINE sod inj. 100mcg/5 ml vial IV SCH (08:00)
[2019-01-31] MEDS: atorvastatin 20mg tablet PO SCH (08:43)
[2019-01-31] MEDS: dexamethasone 4mg/ml inj IV SCH (08:43)
[2019-01-31] MEDS: amLODIPine 5mg tablet PO SCH (08:44)
[2019-01-31] MEDS: aspirin 81mg tablet.DR PO SCH (08:44)
[2019-01-31] MEDS: normal saline 1000ml 1,000 ML IV SCH ×2 (08:44→23:31)
[2019-01-31] MEDS: lisinopril 20mg tablet PO SCH ×2 (08:48→20:58)
[2019-01-31] MEDS: heparin, porcine 5000 units/ml vial SQ SCH ×2 (08:49→20:58)
--- NOTE | 2019-01-31 18:00 | NUR ---
Patient in room ORTHO 4022. I have received report from KATY Hinkle and had the opportunity to ask questions and assume patient care.
--- NOTE | 2019-01-31 18:21 | NUR ---
Problems reprioritized. Patient report given, questions answered & plan of care reviewed with Damari BURNS.
[2019-01-31] MEDS: hydrALAZINE 20mg/ml inj. IV PRN (18:24)
[2019-02-01] VITALS (7 sets, daily range): BP systolic 152–180; BP diastolic 73–112
[2019-02-01] MEDS: normal saline 1000ml 1,000 ML IV SCH (02:24)
[2019-02-01 06:17] LABS: BASOPHILS # (AUTO) 0.1 X10'3 (0-0.2); BASOPHILS % (AUTO) 0.9 % (0-1); EOSINOPHILS % (AUTO) 0.3 % (0-6); HEMATOCRIT 37.8 % (35.0-45.0); HEMOGLOBIN 12.8 g/dl (12.0-16.0); LYMPHOCYTES # (AUTO) 2.1 X10'3 (1.1-4.8); LYMPHOCYTES % (AUTO) 22.5 % (21-51); MEAN CORPUSCULAR HEMOGLOBIN 29.6 PG (27.0-31.0); MEAN CORPUSCULAR HGB CONC 33.9 g/dL (33.0-36.5); MEAN CORPUSCULAR VOLUME 87.3 FL (78-98); MEAN PLATELET VOLUME 9.1 FL (7.4-10.4); MONOCYTES # (AUTO) 0.7 X10'3 (0-0.9); MONOCYTES % (AUTO) 7.3 % (2-12); NEUTROPHILS # (AUTO) 6.3 X10'3 (1.8-7.7); PLATELET COUNT 179 X10'3 (140-440); RED BLOOD COUNT 4.34 X10'6 (4.20-5.60); RED CELL DISTRIBUTION WIDTH 14.2 % (11.5-14.5); WHITE BLOOD COUNT 9.2 X10'3 (4.5-11.0)
--- NOTE | 2019-02-01 06:34 | NUR ---
Problems reprioritized. Patient report given, questions answered & plan of care reviewed with KATY Hernandez.
[2019-02-01 06:52] LABS: ALBUMIN 3.1 G/DL (3.4-5.0); ANION GAP 12 (8-16); BLOOD UREA NITROGEN 18 MG/DL (7-18); BUN/CREATININE RATIO 18.6 (6.6-38.0); CALCIUM 8.9 MG/DL (8.5-10.1); CHLORIDE 110 MMOL/L (99-107); CREATININE 0.97 MG/DL (0.40-0.90); GLUCOSE 95 MG/DL (70-104); MAGNESIUM 1.9 MG/DL (1.5-2.4); POTASSIUM 3.7 MMOL/L (3.5-5.1); SODIUM 143 MMOL/L (135-145); TOTAL CARBON DIOXIDE 21.1 MMOL/L (24-32); eGFR 56 ML/MIN
[2019-02-01] MEDS: levoTHYROXINE 25mcg tablet PO SCH (07:47)
[2019-02-01] MEDS: atorvastatin 20mg tablet PO SCH (07:48)
[2019-02-01] MEDS: aspirin 81mg tablet.DR PO SCH (07:48)
[2019-02-01] MEDS: amLODIPine 5mg tablet PO SCH (07:48)
[2019-02-01] MEDS: lisinopril 20mg tablet PO SCH ×2 (07:48→19:25)
[2019-02-01] MEDS: predniSONE 20 mg tablet PO SCH (07:48)
[2019-02-01] MEDS: heparin, porcine 5000 units/ml vial SQ SCH ×2 (07:49→19:31)
[2019-02-01] MEDS: hydrALAZINE 20mg/ml inj. IV PRN (12:41)
--- NOTE | 2019-02-02 03:22 | NUR ---
Page to dr Henry to notify her r/t tele called to report pt with 2nd degree heart block type 1 moving to type 2, dropped 3 complexes in a row. awaiting response.
--- NOTE | 2019-02-02 03:30 | NUR ---
DR HOLLEY RESPONDED , NO NEW ORDERS, CONTINUE TO MONITOR.
--- NOTE | 2019-02-02 03:35 | NUR ---
Tele called again to notify rn that pt is continuing to have type 2, 2nd degree heart block. RN notified the charge nurse and she discussed the situation with rn traveling and rn ent and this seems to be r/t her thyroidectomy and we will continue to monitor as well as pass on and discuss with dayshift hospitalist for further tx plan. at this time the pt has stable VS, 198/79, with one dose of hydralazine 10mg IV given, and HR 64, and spo2 94%/RA. Pt is Alert and confused as baseline with dementia.
[2019-02-02] MEDS: hydrALAZINE 20mg/ml inj. IV PRN (04:04)
[2019-02-02 06:00] VITALS: BP 130/68
--- NOTE | 2019-02-02 06:37 | NUR ---
REPORT GIVEN TO KATY MORFIN,.
[2019-02-02 07:02] LABS: BASOPHILS # (AUTO) 0.1 X10'3 (0-0.2); BASOPHILS % (AUTO) 0.6 % (0-1); EOSINOPHILS # (AUTO) 0.1 X10'3 (0-0.9); HEMATOCRIT 42.6 % (35.0-45.0); HEMOGLOBIN 14.2 g/dl (12.0-16.0); LYMPHOCYTES # (AUTO) 1.9 X10'3 (1.1-4.8); LYMPHOCYTES % (AUTO) 22.2 % (21-51); MEAN CORPUSCULAR HEMOGLOBIN 29.3 PG (27.0-31.0); MEAN CORPUSCULAR HGB CONC 33.4 g/dL (33.0-36.5); MEAN CORPUSCULAR VOLUME 87.8 FL (78-98); MEAN PLATELET VOLUME 8.6 FL (7.4-10.4); MONOCYTES # (AUTO) 0.8 X10'3 (0-0.9); MONOCYTES % (AUTO) 8.9 % (2-12); NEUTROPHILS # (AUTO) 5.8 X10'3 (1.8-7.7); NEUTROPHILS % (AUTO) 67.3 % (42-75); PLATELET COUNT 215 X10'3 (140-440); RED BLOOD COUNT 4.86 X10'6 (4.20-5.60); RED CELL DISTRIBUTION WIDTH 14.6 % (11.5-14.5); WHITE BLOOD COUNT 8.6 X10'3 (4.5-11.0)
[2019-02-02 07:04] LABS: ALBUMIN 3.6 G/DL (3.4-5.0); ANION GAP 11 (8-16); BLOOD UREA NITROGEN 27 MG/DL (7-18); BUN/CREATININE RATIO 23.3 (6.6-38.0); CALCIUM 9.8 MG/DL (8.5-10.1); CHLORIDE 106 MMOL/L (99-107); CREATININE 1.16 MG/DL (0.40-0.90); GLUCOSE 100 MG/DL (70-104); MAGNESIUM 2.1 MG/DL (1.5-2.4); POTASSIUM 3.8 MMOL/L (3.5-5.1); SODIUM 141 MMOL/L (135-145); TOTAL CARBON DIOXIDE 23.8 MMOL/L (24-32); eGFR 45 ML/MIN
[2019-02-02] MEDS: amLODIPine 5mg tablet PO SCH (08:27)
[2019-02-02] MEDS: atorvastatin 20mg tablet PO SCH (08:27)
[2019-02-02] MEDS: aspirin 81mg tablet.DR PO SCH (08:27)
[2019-02-02] MEDS: heparin, porcine 5000 units/ml vial SQ SCH ×2 (08:27→20:23)
[2019-02-02] MEDS: levoTHYROXINE 25mcg tablet PO SCH (08:27)
[2019-02-02] MEDS: lisinopril 20mg tablet PO SCH ×2 (08:32→20:22)
[2019-02-02] MEDS: predniSONE 20 mg tablet PO SCH (08:32)
[2019-02-02 10:00] VITALS: BP 143/71
--- NOTE | 2019-02-02 10:43 | NUR ---
Initial: Pt admit with acute CVA and remains confused per MD notes. Pt s/p BSS 01/[address] sabrina to continue regular food and thin liquids. Pt currently on heart healthy diet with documented 75-100% PO intake meeting nutrient needs. LBM 02/01. No edema or wounds. No nutrition diagnosis at this time. Will continue to follow. Recommendations: 1) Continue heart healthy diet 2) Wt per rx Addendum: 02/02/19 at [address] Amended: Links added.
[2019-02-02 12:30] VITALS: BP 161/95
--- NOTE | 2019-02-02 13:47 | NUR ---
spoke to pt family at length regarding pt condition and plan of care. Her two sons florencio and Darshan and her ex are present. Pt is up in the recliner having lunch and visiting with family. Addendum: 02/02/19 at 1348 by Kassandra Avery RN Amended: Links added.
[2019-02-02 18:00] VITALS: BP 148/75
--- NOTE | 2019-02-02 18:55 | NUR ---
REPORT REC'D FROM KATY MORFIN.
[2019-02-02 22:00] VITALS: BP 138/96
--- NOTE | 2019-02-03 06:31 | NUR ---
REPORT GIVEN TO KATY SCHULZ.
[2019-02-03 06:52] VITALS: BP 141/94
[2019-02-03] MEDS: amLODIPine 5mg tablet PO SCH (08:03)
[2019-02-03] MEDS: levoTHYROXINE 25mcg tablet PO SCH (08:03)
[2019-02-03] MEDS: heparin, porcine 5000 units/ml vial SQ SCH ×2 (08:03→20:52)
[2019-02-03] MEDS: aspirin 81mg tablet.DR PO SCH (08:04)
[2019-02-03] MEDS: predniSONE 20 mg tablet PO SCH (08:04)
[2019-02-03] MEDS: atorvastatin 20mg tablet PO SCH (08:04)
[2019-02-03] MEDS: lisinopril 20mg tablet PO SCH ×2 (08:04→20:51)
[2019-02-03 10:40] VITALS: BP 157/78
[2019-02-03 18:00] VITALS: BP 138/63
[2019-02-03 22:00] VITALS: BP 133/74
[2019-02-04 06:00] VITALS: BP 169/89
--- NOTE | 2019-02-04 06:19 | NUR ---
REPORT GIVEN TO KATY GILLIAM.
--- NOTE | 2019-02-04 06:30 | NUR ---
Patient in room ORTHO 4022. I have received report from KATY Friend and had the opportunity to ask questions and assume patient care.
[2019-02-04] MEDS: levoTHYROXINE 25mcg tablet PO SCH (07:26)
[2019-02-04] MEDS: atorvastatin 20mg tablet PO SCH (07:26)
[2019-02-04] MEDS: aspirin 81mg tablet.DR PO SCH (07:26)
[2019-02-04] MEDS: amLODIPine 5mg tablet PO SCH (07:26)
[2019-02-04] MEDS: heparin, porcine 5000 units/ml vial SQ SCH ×2 (07:27→21:48)
[2019-02-04] MEDS: lisinopril 20mg tablet PO SCH ×2 (07:27→21:46)
[2019-02-04] MEDS: predniSONE 20 mg tablet PO SCH (07:29)
[2019-02-04 10:00] VITALS: BP 136/76
[2019-02-04] MEDS: hydrALAZINE 20mg/ml inj. IV PRN (17:52)
[2019-02-04 18:00] VITALS: BP 167/98
--- NOTE | 2019-02-04 18:29 | NUR ---
Problems reprioritized. Patient report given, questions answered & plan of care reviewed with KATY Kaplan.
[2019-02-04 22:00] VITALS: BP 130/73
[2019-02-05 06:00] VITALS: BP 118/78
[2019-02-05] MEDS: levoTHYROXINE 25mcg tablet PO SCH (07:22)
[2019-02-05] MEDS: lisinopril 20mg tablet PO SCH ×2 (07:23→19:12)
[2019-02-05] MEDS: amLODIPine 5mg tablet PO SCH (07:23)
[2019-02-05] MEDS: atorvastatin 20mg tablet PO SCH (07:23)
[2019-02-05] MEDS: aspirin 81mg tablet.DR PO SCH (07:23)
[2019-02-05] MEDS: heparin, porcine 5000 units/ml vial SQ SCH ×2 (07:25→19:12)
[2019-02-05] MEDS: predniSONE 20 mg tablet PO SCH (07:25)
[2019-02-05 10:00] VITALS: BP 141/70
[2019-02-05 18:00] VITALS: BP 162/78
--- NOTE | 2019-02-05 18:08 | NUR ---
Problems reprioritized. Patient report given, questions answered & plan of care reviewed with KATY Capone.
--- NOTE | 2019-02-05 18:15 | NUR ---
Received report from Kalina BURNS, assumed care of patient with Estelita BURNS.
[2019-02-05 22:00] VITALS: BP 154/71
--- NOTE | 2019-02-06 05:45 | NUR ---
In agreement with all charting and medication administration reviewed for this shift completed by Catherine BURNS.
[2019-02-06 06:00] VITALS: BP 171/80
--- NOTE | 2019-02-06 06:36 | NUR ---
Gave report to Cleo BURNS with Estelita BURNS.
[2019-02-06] MEDS: lisinopril 20mg tablet PO SCH ×2 (09:14→19:40)
[2019-02-06] MEDS: atorvastatin 20mg tablet PO SCH (09:15)
[2019-02-06] MEDS: predniSONE 20 mg tablet PO SCH (09:15)
[2019-02-06] MEDS: amLODIPine 5mg tablet PO SCH (09:15)
[2019-02-06] MEDS: aspirin 81mg tablet.DR PO SCH (09:15)
[2019-02-06] MEDS: heparin, porcine 5000 units/ml vial SQ SCH ×2 (09:17→19:40)
[2019-02-06] MEDS: levoTHYROXINE 100mcg tablet PO SCH (09:26)
[2019-02-06 14:00] VITALS: BP 160/68
[2019-02-06 18:00] VITALS: BP 162/85
--- NOTE | 2019-02-06 18:20 | NUR ---
Received report from Cleo BURNS, assumed care of patient with Estelita BURNS.
[2019-02-06 22:00] VITALS: BP 141/89
--- NOTE | 2019-02-07 05:40 | NUR ---
In agreement with all charting and medication administration reviewed for this shift completed by Catherine BURNS.
[2019-02-07 06:00] VITALS: BP 170/85
--- NOTE | 2019-02-07 06:20 | NUR ---
Gave report to Juliet BURNS with Estelita BURNS.
[2019-02-07] MEDS: levoTHYROXINE 100mcg tablet PO SCH (07:12)
[2019-02-07] MEDS: aspirin 81mg tablet.DR PO SCH (07:12)
[2019-02-07] MEDS: atorvastatin 20mg tablet PO SCH (07:12)
[2019-02-07] MEDS: heparin, porcine 5000 units/ml vial SQ SCH ×2 (07:14→21:34)
[2019-02-07] MEDS: amLODIPine 5mg tablet PO SCH (07:14)
[2019-02-07] MEDS: lisinopril 20mg tablet PO SCH ×2 (07:15→21:35)
[2019-02-07] MEDS: predniSONE 20 mg tablet PO SCH (08:42)
[2019-02-07 09:06] LABS: BASOPHILS # (AUTO) 0.1 X10'3 (0-0.2); BASOPHILS % (AUTO) 0.7 % (0-1); EOSINOPHILS # (AUTO) 0.1 X10'3 (0-0.9); EOSINOPHILS % (AUTO) 0.9 % (0-6); HEMATOCRIT 42.6 % (35.0-45.0); HEMOGLOBIN 14.4 g/dl (12.0-16.0); LYMPHOCYTES # (AUTO) 2.1 X10'3 (1.1-4.8); LYMPHOCYTES % (AUTO) 20.8 % (21-51); MEAN CORPUSCULAR HEMOGLOBIN 29.5 PG (27.0-31.0); MEAN CORPUSCULAR HGB CONC 33.7 g/dL (33.0-36.5); MEAN CORPUSCULAR VOLUME 87.5 FL (78-98); MEAN PLATELET VOLUME 8.1 FL (7.4-10.4); MONOCYTES # (AUTO) 0.7 X10'3 (0-0.9); MONOCYTES % (AUTO) 7.5 % (2-12); NEUTROPHILS # (AUTO) 6.9 X10'3 (1.8-7.7); NEUTROPHILS % (AUTO) 70.1 % (42-75); PLATELET COUNT 218 X10'3 (140-440); RED BLOOD COUNT 4.86 X10'6 (4.20-5.60); RED CELL DISTRIBUTION WIDTH 14.6 % (11.5-14.5); WHITE BLOOD COUNT 9.9 X10'3 (4.5-11.0)
[2019-02-07 09:13] LABS: ALBUMIN 3.2 G/DL (3.4-5.0); ANION GAP 8 (8-16); BLOOD UREA NITROGEN 30 MG/DL (7-18); BUN/CREATININE RATIO 29.1 (6.6-38.0); CALCIUM 9.3 MG/DL (8.5-10.1); CHLORIDE 104 MMOL/L (99-107); CREATININE 1.03 MG/DL (0.40-0.90); GLUCOSE 132 MG/DL (70-104); SODIUM 138 MMOL/L (135-145); TOTAL CARBON DIOXIDE 25.7 MMOL/L (24-32); eGFR 52 ML/MIN
[2019-02-07 09:15] LABS: POTASSIUM 3.8 MMOL/L (3.5-5.1)
[2019-02-07 09:51] VITALS: BP 139/64
--- NOTE | 2019-02-07 14:21 | NUR ---
reassessment: Pt PO 100% heart healthy diet meeting needs. LBM 02/05. No nutrition concerns at this time. Will continue to monitor. Recommendations: 1) Continue heart healthy diet 2) Wt per rx Addendum: 02/07/19 at [address] Amended: Links added.
--- NOTE | 2019-02-07 16:00 | NUR ---
Pt's hair is extremely matted, malodorous. Multiple methods tried to remove matted area including washing, olive oil, detangler to no avail. Pt agreed to have staff trim her hair to remove the matted areas and maintain proper hygiene.
[2019-02-07 18:00] VITALS: BP 152/76
--- NOTE | 2019-02-07 18:25 | NUR ---
Problems reprioritized. Patient report given, questions answered & plan of care reviewed with Mikaela BURNS.
[2019-02-07 22:00] VITALS: BP 133/60
[2019-02-08 06:00] VITALS: BP 144/82
--- NOTE | 2019-02-08 06:15 | NUR ---
Patient in room ORTHO 4022. I have received report from Mikaela BURNS, and had the opportunity to ask questions and assume patient care.
--- NOTE | 2019-02-08 06:28 | NUR ---
reported to days. noted turn q2 and watch for incontinence. bed alarm active
[2019-02-08] MEDS: aspirin 81mg tablet.DR PO SCH (07:28)
[2019-02-08] MEDS: levoTHYROXINE 100mcg tablet PO SCH (07:28)
[2019-02-08] MEDS: atorvastatin 20mg tablet PO SCH (07:28)
[2019-02-08 07:30] VITALS: BP 149/73
[2019-02-08] MEDS: lisinopril 20mg tablet PO SCH ×2 (07:30→21:53)
[2019-02-08] MEDS: amLODIPine 5mg tablet PO SCH (07:30)
[2019-02-08] MEDS: heparin, porcine 5000 units/ml vial SQ SCH ×2 (07:31→21:53)
[2019-02-08] MEDS: predniSONE 20 mg tablet PO SCH (09:29)
[2019-02-08 10:00] VITALS: BP 105/54
--- NOTE | 2019-02-08 15:09 | NUR ---
page to regarding discharge.
--- NOTE | 2019-02-08 17:32 | NUR ---
Pt arrived on floor, tucked in, taken to restroom with one person assist, norma moffett, no complaints at this time Addendum: 02/08/19 at 1734 by Juliet Ku RN disregard note, incorrect pt
[2019-02-08 18:00] VITALS: BP 175/85
--- NOTE | 2019-02-08 18:27 | NUR ---
Problems reprioritized. Patient report given, questions answered & plan of care reviewed with Mikaela BURNS.
[2019-02-08 22:00] VITALS: BP 152/76
--- NOTE | 2019-02-09 01:00 | NUR ---
noted tele said patient in junctional rhythm at times. 2nd degree heart block much less frequent. req to let nursing know when patient gets out of junctional. "dropping P waves." pt asymptomatic
[2019-02-09 06:00] VITALS: BP 164/62
--- NOTE | 2019-02-09 06:31 | NUR ---
reported to days. noted pt resting w/o distress.
[2019-02-09 07:00] VITALS: BP 146/70
[2019-02-09 10:00] VITALS: BP 146/70
[2019-02-09] MEDS: heparin, porcine 5000 units/ml vial SQ SCH ×2 (10:30→20:47)
[2019-02-09] MEDS: predniSONE 20 mg tablet PO SCH (10:30)
[2019-02-09] MEDS: levoTHYROXINE 125mcg tablet PO SCH (10:31)
[2019-02-09] MEDS: lisinopril 20mg tablet PO SCH ×2 (10:31→20:47)
[2019-02-09] MEDS: amLODIPine 5mg tablet PO SCH (10:31)
[2019-02-09] MEDS: atorvastatin 20mg tablet PO SCH (10:31)
[2019-02-09] MEDS: aspirin 81mg tablet.DR PO SCH (10:31)
[2019-02-09] MEDS ORDERED: morphine 2 MG/ML inj. syringe IV PRN (12:20)
[2019-02-09 18:00] VITALS: BP 154/84
--- NOTE | 2019-02-09 18:47 | NUR ---
Problems reprioritized. Patient report given, questions answered & plan of care reviewed with Lisset BURNS.
[2019-02-09 22:00] VITALS: BP 146/84
[2019-02-10 06:00] VITALS: BP 193/81
--- NOTE | 2019-02-10 06:29 | NUR ---
Problems reprioritized. Patient report given, questions answered & plan of care reviewed with KATY Gilman.
[2019-02-10] MEDS: amLODIPine 5mg tablet PO SCH (08:00)
[2019-02-10 10:00] VITALS: BP 141/72
--- NOTE | 2019-02-10 10:50 | NUR ---
Patient in room ORTHO 4022. I have received report from Rut BURNS and had the opportunity to ask questions and assume patient care.
[2019-02-10] MEDS: predniSONE 20 mg tablet PO SCH (12:16)
[2019-02-10] MEDS: lisinopril 20mg tablet PO SCH ×2 (12:16→20:38)
[2019-02-10] MEDS: levoTHYROXINE 125mcg tablet PO SCH (12:17)
[2019-02-10] MEDS: atorvastatin 20mg tablet PO SCH (12:17)
[2019-02-10] MEDS: aspirin 81mg tablet.DR PO SCH (12:17)
[2019-02-10] MEDS: heparin, porcine 5000 units/ml vial SQ SCH ×2 (12:18→20:39)
[2019-02-10 18:00] VITALS: BP 126/63
--- NOTE | 2019-02-10 18:23 | NUR ---
Problems reprioritized. Patient report given, questions answered & plan of care reviewed with Kat BURNS.
[2019-02-10 22:00] VITALS: BP 153/82
[2019-02-11 05:00] VITALS: BP 146/74
--- NOTE | 2019-02-11 06:02 | NUR ---
Report given to keiko Chavez.
[2019-02-11] MEDS: heparin, porcine 5000 units/ml vial SQ SCH (07:14)
[2019-02-11 07:15] VITALS: BP_SYST 146
[2019-02-11] MEDS: levoTHYROXINE 125mcg tablet PO SCH (07:15)
[2019-02-11] MEDS: aspirin 81mg tablet.DR PO SCH (07:15)
[2019-02-11] MEDS: atorvastatin 20mg tablet PO SCH (07:15)
[2019-02-11] MEDS: amLODIPine 5mg tablet PO SCH (07:15)
[2019-02-11] MEDS: lisinopril 20mg tablet PO SCH (07:15)
[2019-02-11] MEDS: predniSONE 20 mg tablet PO SCH (08:52)
== END 2019-02-11 10:45 | DRG 64 ==
LOC: ER 12:34 → ORTHO 4S 20:10 → CMPBEDREQ 21:00 → UNDODISIN 02-05 12:47
PROVIDERS: ADMIT Family Medicine; ATTEND Internal Medicine
DX: I63.9 Cerebral infarction, unspecified (principal); G93.41 Metabolic encephalopathy; I44.1 Atrioventricular block, second degree; J45.909 Unspecified asthma, uncomplicated; R29.6 Repeated falls; I10 Essential (primary) hypertension; E03.9 Hypothyroidism, unspecified; F32.9 Major depressive disorder, single episode, unspecified; F41.9 Anxiety disorder, unspecified; R00.1 Bradycardia, unspecified; F12.90 Cannabis use, unspecified, uncomplicated; E87.6 Hypokalemia; F03.90 Unspecified dementia, unspecified severity, without behavioral disturbance, psychotic disturbance, mood disturbance, and anxiety; Z91.19 Patient's noncompliance with other medical treatment and regimen; Z79.890 Hormone replacement therapy; Z86.73 Personal history of transient ischemic attack (TIA), and cerebral infarction without residual deficits; Z90.710 Acquired absence of both cervix and uterus; Z91.14 Patient's other noncompliance with medication regimen; Z91.81 History of falling; Z88.2 Allergy status to sulfonamides; Z88.8 Allergy status to other drugs, medicaments and biological substances; Z90.49 Acquired absence of other specified parts of digestive tract; Z98.891 History of uterine scar from previous surgery; Z79.82 Long term (current) use of aspirin
CPT/HCPCS: 36415; 70450; 70544; 70551; 71045; 80048; 80053; 80061; 80305; 80320; 81001; 82140; 82948; 83605; 83735; 84132; 84439; 84443; 84480; 84484; 85025; 85610; 85730; 87040; 87081; 87088; 92508; 92616; 93005; 93306; 93880; 96360; 96361; 97110; 97116; 97161; 97530; 97535; 99285; G0378; J0360; J1100; J1644; J2060; J3480; J7030; J7512

== ENCOUNTER 2019-03-14 05:02 | Inpatient (IN) | payer MEDICARE, OTHER ==
[2019-03-14] VITALS (17 sets, daily range): BP systolic 147–198; BP diastolic 62–106
[~2019-03-14] VITALS: Ht 167.6 cm
[~2019-03-14 05:02] MED LIST changes: -AMLO5TAB16 PO; -ASPI-1071 PO; -ATOR20TA66 PO; -CYCL-1 PO; -DIAZ2TAB PO; -LEVO100T9 PO; -LISI-600 PO; +NO HOME MEDS
[2019-03-14] MEDS ORDERED: ondansetron/PF 4mg/2ml inj IV ONE (05:15)
[2019-03-14 05:25] LABS: BASOPHILS % (AUTO) 0.3 % (0-1); EOSINOPHILS % (AUTO) 0.3 % (0-6); HEMATOCRIT 38.5 % (35.0-45.0); HEMOGLOBIN 12.7 g/dl (12.0-16.0); LYMPHOCYTES # (AUTO) 1.4 X10'3 (1.1-4.8); LYMPHOCYTES % (AUTO) 9.1 % (21-51); MEAN CORPUSCULAR VOLUME 87.7 FL (78-98); MEAN PLATELET VOLUME 7.4 FL (7.4-10.4); MONOCYTES # (AUTO) 0.9 X10'3 (0-0.9); MONOCYTES % (AUTO) 5.8 % (2-12); NEUTROPHILS # (AUTO) 13.4 X10'3 (1.8-7.7); NEUTROPHILS % (AUTO) 84.5 % (42-75); PLATELET COUNT 210 X10'3 (140-440); RED BLOOD COUNT 4.39 X10'6 (4.20-5.60); RED CELL DISTRIBUTION WIDTH 13.9 % (11.5-14.5); WHITE BLOOD COUNT 15.9 X10'3 (4.5-11.0)
--- NOTE | 2019-03-14 05:34 | NUR ---
CHEST XRAY COMPLETED
[2019-03-14 05:40] LABS: PARTIAL THROMBOPLASTIN TIME 22 SECONDS (22-32)
[2019-03-14 05:41] LABS: ALANINE AMINOTRANSFERASE 366 U/L (12-78); ALBUMIN 3.7 G/DL (3.4-5.0); ALBUMIN/GLOBULIN RATIO 0.9 (1.1-1.5); ALKALINE PHOSPHATASE 413 IU/L (46-116); ANION GAP 14 (8-16); ASPARTATE AMINO TRANSFERASE 230 U/L (10-37); BLOOD UREA NITROGEN 33 MG/DL (7-18); BUN/CREATININE RATIO 26.4 (6.6-38.0); CALCIUM 10.6 MG/DL (8.5-10.1); CHLORIDE 105 MMOL/L (99-107); CREATININE 1.25 MG/DL (0.40-0.90); GLUCOSE 198 MG/DL (70-104); POTASSIUM 3.7 MMOL/L (3.5-5.1); SODIUM 140 MMOL/L (135-145); TOTAL CARBON DIOXIDE 20.9 MMOL/L (24-32); TOTAL PROTEIN 7.6 G/DL (6.4-8.2); eGFR 42 ML/MIN
--- NOTE | 2019-03-14 05:45 | NUR ---
PT PLACED 2 L OXYGEN NC TO KEEP SATS GREATER THAN 93 %
--- NOTE | 2019-03-14 05:54 | NUR ---
PT TO CT
[2019-03-14] MEDS ORDERED: ACET650T11 PO (06:05)
[2019-03-14] MEDS ORDERED: ASPI-1265 PO (06:06)
[2019-03-14] MEDS ORDERED: AMLO-93 PO (06:06)
[2019-03-14] MEDS ORDERED: ATOR20TA PO (06:07)
[2019-03-14] MEDS ORDERED: BISA10SU60 PR (06:08)
[2019-03-14] MEDS ORDERED: LEVO150T8 PO (06:11)
[2019-03-14] MEDS ORDERED: LISI-600 PO (06:13)
[2019-03-14] MEDS ORDERED: MAGN400O6 PO (06:14)
[2019-03-14] MEDS ORDERED: HEPA500015 IJ (06:16)
[2019-03-14] MEDS ORDERED: metroNIDAZOLE-Flagyl 500mg/NS 100 ML IV STA (06:31)
[2019-03-14] MEDS ORDERED: ciprofloxacin lact 400MG/200ML 200 ML IV SCH (06:35)
[2019-03-14] MEDS ORDERED: normal saline 1000ML IV soln IVB ONE (06:35)
[2019-03-14 06:51] LABS: CLARITY,URINE CLEAR (Clear); COLOR,URINE YELLOW (Yellow); GLUCOSE, URINE NEGATIVE (Neg); KETONES,URINE NEGATIVE (Neg); LEUKOCYTE ESTERASE ,URINE NEGATIVE (Neg); NITRITES, URINE NEGATIVE (Neg); OCCULT BLOOD,URINE NEGATIVE (Neg); PROTEIN,URINE NEGATIVE (Neg); UROBILINOGEN,URINE 0.2 E.U/dL (0.2-1.0)
[2019-03-14 06:52] LABS: UA COLLECTION TYPE STRAIGHT CATH
[2019-03-14 07:41] LABS: LIPASE > 30000 U/L (73-393)
[2019-03-14] MEDS ORDERED: magnesium Cl slow-release 64mg tablet PO PRN (07:50)
[2019-03-14] MEDS ORDERED: magnesium 2GM in 50ml NS 50 ML IV PRN (07:50)
[2019-03-14] MEDS ORDERED: acetaminophen 325mg tablet PO PRN ×2 (07:50)
[2019-03-14] MEDS ORDERED: morphine 2 MG/ML inj. syringe IV PRN (07:50)
[2019-03-14] MEDS ORDERED: magnesium 4gm in 100ml NS 100 ML IV PRN (07:50)
[2019-03-14] MEDS ORDERED: magnesium hydroxide 30ml (MOM) UD suspension PO PRN (07:50)
[2019-03-14] MEDS ORDERED: potassium CL 10mEq/100ml bag 100 ML IV PRN ×2 (07:50)
[2019-03-14] MEDS ORDERED: potassium Cl 20 mEq SR tablet PO PRN ×2 (07:50)
[2019-03-14] MEDS ORDERED: mag hydrox/Alum hydrox/simeth 30ml oral suspension PO PRN (07:50)
[2019-03-14] MEDS: K and/or MAG REPLACEMENT MC SCH (08:00)
[2019-03-14] MEDS ORDERED: enoxaparin 40mg/0.4ml syringe SQ SCH (08:00)
[2019-03-14] MEDS: metroNIDAZOLE-Flagyl 500mg/NS 100 ML IV SCH ×2 (08:00→16:00)
[2019-03-14] MEDS: normal saline 1000ml 1,000 ML IV SCH ×2 (10:00→17:50)
--- NOTE | 2019-03-14 12:44 | NUR ---
PT IS INCONTINENT. APPLIED WICK
--- NOTE | 2019-03-14 14:42 | NUR ---
GI CAME TO GET PT FOR ERCP.
[2019-03-14] MEDS ORDERED: fentaNYL/PF 50MCG/1 ML 2ML syringe ONE (15:20)
[2019-03-14] MEDS ORDERED: diphenhydrAMINE 50 mg/ml inj ONE (15:20)
[2019-03-14] MEDS ORDERED: MIDAZolam 5mg/5ml vial ONE (15:20)
[2019-03-14] MEDS ORDERED: levoFLOXACIN-Levaquin 500mg/D5 100 ML IV ONE (15:21)
[2019-03-14] MEDS ORDERED: iohexol 300 MG/1 ML 50ml polymer ONE (15:21)
[2019-03-14] MEDS ORDERED: glucagon, human recombinant 1mg kit ONE ×2 (15:21)
[2019-03-14] MEDS ORDERED: LIDOcaine Viscous 15ml cup ONE (15:21)
--- NOTE | 2019-03-14 15:41 | NUR ---
UNABLE TO DART. PT HAS COGNITIVE DEFICITS. TRIED TO CALL CONTACT ON FACE SHEET. LEFT MESSAGE.
--- NOTE | 2019-03-14 16:23 | NUR ---
pt in gi lab. will hang abx when she returns
[2019-03-14] MEDS ORDERED: LORazepam 2 mg/ml vial IV ONE (17:20)
--- NOTE | 2019-03-14 17:41 | NUR ---
PT IS STILL IN GI LAB. NOT AVAILABLE TO GIVE ABX
--- NOTE | 2019-03-14 17:54 | NUR ---
Did not use the 1mg IV ativan for patient in MRI, wasted 2ml IV ativan with JAYME BURNS from ER as witness.
--- NOTE | 2019-03-14 17:56 | NUR ---
Problems reprioritized. Patient report given, questions answered & plan of care reviewed with KELI BURNS.
--- NOTE | 2019-03-14 18:10 | NUR ---
Patient in room MEHUL 355. I have received report from Brenda BURNS and had the opportunity to ask questions and assume patient care.
[2019-03-14] MEDS: lactobacillus rhamnosus 10,000 MMU CELLS/CAPSULE PO SCH (19:44)
[2019-03-14] MEDS: ciprofloxacin lact 400MG/200ML 200 ML IV SCH (19:44)
[2019-03-14] MEDS: heparin, porcine 5000 units/ml vial SQ SCH (19:53)
[2019-03-15] MEDS: metroNIDAZOLE-Flagyl 500mg/NS 100 ML IV SCH ×4 (00:06→23:43)
[2019-03-15 00:32] VITALS: BP 164/93
[2019-03-15] MEDS: normal saline 1000ml 1,000 ML IV SCH ×3 (03:50→23:45)
[2019-03-15] MEDS: hydrALAZINE 20mg/ml inj. IV PRN (04:28)
--- NOTE | 2019-03-15 06:40 | NUR ---
Problems reprioritized. Patient report given, questions answered & plan of care reviewed with Agnes BURNS.
--- NOTE | 2019-03-15 06:42 | NUR ---
Patient in room MEHUL 355. I have received report from Ralph BURNS and had the opportunity to ask questions and assume patient care.
[2019-03-15 07:00] VITALS: BP 162/85
[2019-03-15 07:22] LABS: ALANINE AMINOTRANSFERASE 206 U/L (12-78); ALBUMIN/GLOBULIN RATIO 0.9 (1.1-1.5); ALKALINE PHOSPHATASE 292 IU/L (46-116); ANION GAP 14 (8-16); ASPARTATE AMINO TRANSFERASE 64 U/L (10-37); BILIRUBIN,TOTAL 0.6 MG/DL (0.1-1.0); BLOOD UREA NITROGEN 27 MG/DL (7-18); BUN/CREATININE RATIO 26.5 (6.6-38.0); CALCIUM 8.1 MG/DL (8.5-10.1); CHLORIDE 110 MMOL/L (99-107); CREATININE 1.02 MG/DL (0.40-0.90); GLUCOSE 132 MG/DL (70-104); MAGNESIUM 1.6 MG/DL (1.5-2.4); SODIUM 142 MMOL/L (135-145); TOTAL CARBON DIOXIDE 18.2 MMOL/L (24-32); TOTAL PROTEIN 6.5 G/DL (6.4-8.2); eGFR 53 ML/MIN
[2019-03-15] MEDS: K and/or MAG REPLACEMENT MC SCH (07:49)
[2019-03-15] MEDS: levoTHYROXINE 75mcg tablet PO SCH (07:52)
[2019-03-15] MEDS: lactobacillus rhamnosus 10,000 MMU CELLS/CAPSULE PO SCH ×2 (07:52→19:47)
[2019-03-15] MEDS: heparin, porcine 5000 units/ml vial SQ SCH ×2 (07:52→19:50)
--- NOTE | 2019-03-15 08:00 | NUR ---
Patient has no peripheral IV catheter when I received this patient this am. lieutenant shift supervisor said that her IV got infiltrated and that they were having hard time getting a new IV site. I could not find a visible vein at this time, I paged PICC nurse for help
[2019-03-15 09:20] LABS: BASOPHILS % (AUTO) 0.1 % (0-1); EOSINOPHILS % (AUTO) 0.1 % (0-6); HEMATOCRIT 36.9 % (35.0-45.0); HEMOGLOBIN 12.5 g/dl (12.0-16.0); LYMPHOCYTES # (AUTO) 0.8 X10'3 (1.1-4.8); LYMPHOCYTES % (AUTO) 6.2 % (21-51); MEAN CORPUSCULAR HEMOGLOBIN 29.3 PG (27.0-31.0); MEAN CORPUSCULAR HGB CONC 33.8 g/dL (33.0-36.5); MEAN CORPUSCULAR VOLUME 86.7 FL (78-98); MEAN PLATELET VOLUME 7.5 FL (7.4-10.4); MONOCYTES # (AUTO) 0.9 X10'3 (0-0.9); MONOCYTES % (AUTO) 6.6 % (2-12); NEUTROPHILS # (AUTO) 11.4 X10'3 (1.8-7.7); PLATELET COUNT 189 X10'3 (140-440); RED BLOOD COUNT 4.26 X10'6 (4.20-5.60); WHITE BLOOD COUNT 13.1 X10'3 (4.5-11.0)
[2019-03-15] MEDS: ciprofloxacin lact 400MG/200ML 200 ML IV SCH ×2 (10:31→19:47)
[2019-03-15 11:00] VITALS: BP 139/75
--- NOTE | 2019-03-15 18:10 | NUR ---
Patient in room MEHUL 355. I have received report from Agnes BURNS and had the opportunity to ask questions and assume patient care.
--- NOTE | 2019-03-15 18:16 | NUR ---
Problems reprioritized. Patient report given, questions answered & plan of care reviewed with Ralph BURNS.
[2019-03-15 20:00] VITALS: BP 165/74
[2019-03-16] VITALS: BP 152/74
[2019-03-16 05:19] LABS: BASOPHILS % (AUTO) 0.1 % (0-1); EOSINOPHILS % (AUTO) 0.1 % (0-6); HEMATOCRIT 31.2 % (35.0-45.0); HEMOGLOBIN 10.7 g/dl (12.0-16.0); LYMPHOCYTES # (AUTO) 0.9 X10'3 (1.1-4.8); LYMPHOCYTES % (AUTO) 8.5 % (21-51); MEAN CORPUSCULAR HEMOGLOBIN 30.1 PG (27.0-31.0); MEAN CORPUSCULAR HGB CONC 34.4 g/dL (33.0-36.5); MEAN CORPUSCULAR VOLUME 87.5 FL (78-98); MEAN PLATELET VOLUME 7.8 FL (7.4-10.4); MONOCYTES # (AUTO) 0.8 X10'3 (0-0.9); MONOCYTES % (AUTO) 7.6 % (2-12); NEUTROPHILS # (AUTO) 9.1 X10'3 (1.8-7.7); NEUTROPHILS % (AUTO) 83.7 % (42-75); PLATELET COUNT 146 X10'3 (140-440); RED BLOOD COUNT 3.57 X10'6 (4.20-5.60); RED CELL DISTRIBUTION WIDTH 13.9 % (11.5-14.5); WHITE BLOOD COUNT 10.9 X10'3 (4.5-11.0)
[2019-03-16 06:07] LABS: ALANINE AMINOTRANSFERASE 126 U/L (12-78); ALBUMIN 2.7 G/DL (3.4-5.0); ALBUMIN/GLOBULIN RATIO 0.8 (1.1-1.5); ALKALINE PHOSPHATASE 209 IU/L (46-116); ANION GAP 11 (8-16); ASPARTATE AMINO TRANSFERASE 34 U/L (10-37); BILIRUBIN,TOTAL 0.5 MG/DL (0.1-1.0); BLOOD UREA NITROGEN 21 MG/DL (7-18); BUN/CREATININE RATIO 22.8 (6.6-38.0); CALCIUM 8.2 MG/DL (8.5-10.1); CHLORIDE 112 MMOL/L (99-107); CREATININE 0.92 MG/DL (0.40-0.90); GLUCOSE 126 MG/DL (70-104); MAGNESIUM 1.8 MG/DL (1.5-2.4); POTASSIUM 3.6 MMOL/L (3.5-5.1); SODIUM 144 MMOL/L (135-145); TOTAL CARBON DIOXIDE 20.9 MMOL/L (24-32); TOTAL PROTEIN 6.1 G/DL (6.4-8.2); eGFR 59 ML/MIN
[2019-03-16 06:25] LABS: LIPASE 6990 U/L (73-393)
--- NOTE | 2019-03-16 06:43 | NUR ---
Problems reprioritized. Patient report given, questions answered & plan of care reviewed with Melisa BURNS.
[2019-03-16 07:15] VITALS: BP 170/80
[2019-03-16] MEDS: hydrALAZINE 20mg/ml inj. IV PRN (07:28)
[2019-03-16] MEDS: levoTHYROXINE 75mcg tablet PO SCH (07:29)
[2019-03-16] MEDS: metroNIDAZOLE-Flagyl 500mg/NS 100 ML IV SCH ×3 (07:30→23:41)
[2019-03-16] MEDS: lactobacillus rhamnosus 10,000 MMU CELLS/CAPSULE PO SCH ×2 (07:30→19:49)
[2019-03-16] MEDS: HYDROcodone/acetaminophen 5mg/325mg tablet PO PRN (07:32)
[2019-03-16] MEDS: heparin, porcine 5000 units/ml vial SQ SCH ×2 (07:33→19:49)
[2019-03-16] MEDS: K and/or MAG REPLACEMENT MC SCH (07:33)
[2019-03-16] MEDS: ciprofloxacin lact 400MG/200ML 200 ML IV SCH ×2 (08:52→19:48)
[2019-03-16] MEDS: normal saline 1000ml 1,000 ML IV SCH ×2 (09:52→19:50)
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
--- NOTE | 2019-03-16 12:03 | NUR ---
Patients son Darshan called back gave him the email address for our sample case porter so he could email patients POA paper work to us. The email address is [email or web address]. I advised Darshan to call back if he had any problems sending the information.
[2019-03-16 12:05] VITALS: BP 160/66
--- NOTE | 2019-03-16 15:01 | NUR ---
Durable POA paperwork received by Yeni. Called Darshan (pt. son) to verify that he didn't have paperwork for a medical POA. Charge nurse asked pt. who is confused, but can state that her son is her medical decision maker. Verified with Darshan that it is him and not the pt.'s sister that makes medical decisions.
--- NOTE | 2019-03-16 16:10 | NUR ---
Pt. in bed resting comforbaly with rise and fall of chest. IVF running per order. Recent linen change and reposition. Problems reprioritized. Patient report given, questions answered & plan of care reviewed with Gabriella BURNS.
--- NOTE | 2019-03-16 18:00 | NUR ---
Patient in room MEHUL 355. I have received report from Gabriella BURNS and had the opportunity to ask questions and assume patient care.
--- NOTE | 2019-03-16 18:31 | NUR ---
Problems reprioritized. Patient report given, questions answered & plan of care reviewed with KATY Rosas.
[2019-03-16 20:02] VITALS: BP 143/40
[2019-03-17 00:12] VITALS: BP 167/78
[2019-03-17] MEDS: normal saline 1000ml 1,000 ML IV SCH ×3 (05:50→19:54)
[2019-03-17 05:53] LABS: BASOPHILS % (AUTO) 0.2 % (0-1); EOSINOPHILS % (AUTO) 0.3 % (0-6); HEMATOCRIT 30.9 % (35.0-45.0); HEMOGLOBIN 10.7 g/dl (12.0-16.0); LYMPHOCYTES # (AUTO) 0.8 X10'3 (1.1-4.8); LYMPHOCYTES % (AUTO) 8.2 % (21-51); MEAN CORPUSCULAR HEMOGLOBIN 30.1 PG (27.0-31.0); MEAN CORPUSCULAR HGB CONC 34.5 g/dL (33.0-36.5); MEAN CORPUSCULAR VOLUME 87.3 FL (78-98); MEAN PLATELET VOLUME 7.8 FL (7.4-10.4); MONOCYTES # (AUTO) 0.8 X10'3 (0-0.9); NEUTROPHILS # (AUTO) 8.2 X10'3 (1.8-7.7); NEUTROPHILS % (AUTO) 83.3 % (42-75); PLATELET COUNT 133 X10'3 (140-440); RED BLOOD COUNT 3.54 X10'6 (4.20-5.60); WHITE BLOOD COUNT 9.9 X10'3 (4.5-11.0)
[2019-03-17 06:24] LABS: ALANINE AMINOTRANSFERASE 88 U/L (12-78); ALBUMIN 2.6 G/DL (3.4-5.0); ALBUMIN/GLOBULIN RATIO 0.8 (1.1-1.5); ALKALINE PHOSPHATASE 170 IU/L (46-116); ANION GAP 11 (8-16); ASPARTATE AMINO TRANSFERASE 22 U/L (10-37); BILIRUBIN,TOTAL 0.5 MG/DL (0.1-1.0); BLOOD UREA NITROGEN 15 MG/DL (7-18); BUN/CREATININE RATIO 20.5 (6.6-38.0); CALCIUM 8.2 MG/DL (8.5-10.1); CHLORIDE 111 MMOL/L (99-107); CREATININE 0.73 MG/DL (0.40-0.90); GLUCOSE 125 MG/DL (70-104); MAGNESIUM 1.6 MG/DL (1.5-2.4); POTASSIUM 3.1 MMOL/L (3.5-5.1); SODIUM 144 MMOL/L (135-145); TOTAL CARBON DIOXIDE 21.7 MMOL/L (24-32); eGFR 78 ML/MIN
--- NOTE | 2019-03-17 06:35 | NUR ---
Patient in room MEHUL 355. I have received report from KATY Rosas and had the opportunity to ask questions and assume patient care.
[2019-03-17 06:40] LABS: LIPASE 2446 U/L (73-393)
[2019-03-17 07:00] VITALS: BP 124/71
[2019-03-17] MEDS: heparin, porcine 5000 units/ml vial SQ SCH (08:00)
[2019-03-17] MEDS: K and/or MAG REPLACEMENT MC SCH (08:00)
[2019-03-17] MEDS: metroNIDAZOLE-Flagyl 500mg/NS 100 ML IV SCH ×2 (09:18→16:50)
[2019-03-17] MEDS: lactobacillus rhamnosus 10,000 MMU CELLS/CAPSULE PO SCH ×2 (09:18→19:48)
[2019-03-17] MEDS: levoTHYROXINE 75mcg tablet PO SCH (09:19)
[2019-03-17] MEDS: ciprofloxacin lact 400MG/200ML 200 ML IV SCH ×2 (09:29→19:47)
[2019-03-17 11:00] VITALS: BP_SYST 176; BP_SYST 189; BP_DIAS 84; BP_DIAS 85
[2019-03-17] MEDS ORDERED: magnesium Cl slow-release 64mg tablet PO PRN (12:50)
[2019-03-17] MEDS ORDERED: potassium Cl 20 mEq SR tablet PO PRN ×2 (12:50)
[2019-03-17] MEDS ORDERED: magnesium 4gm in 100ml NS 100 ML IV PRN (12:50)
[2019-03-17] MEDS: potassium CL 10mEq/100ml bag 100 ML IV PRN ×4 (13:26→18:31)
--- NOTE | 2019-03-17 14:45 | NUR ---
Primary nurse returned from lunch and rounded on patients. Upon entering the room patient was found on the floor. Patient was asked if she was okay, patient stated, "I'm fine, I just fell". Help was asked for. VS were as follow BP 160/114 HR 73 RR 22 O2 98%. Patient stated she doesn't remember how she fell or what happened. Patient is A&O x1 and this is baseline. Chrissy was retrieved to get the patient off of the floor. Patient was placed onto a [place] bed so that a bed alarm could be used. Patient was also placed into a room closer to the nurses station. Patient stated that she was not in any pain. She does not appear to have any open skin areas and upon assessment patient does not complain of pain when moving legs or arms. aware.
--- NOTE | 2019-03-17 18:30 | NUR ---
Problems reprioritized. Patient report given, questions answered & plan of care reviewed with KATY Borja.
--- NOTE | 2019-03-17 18:34 | NUR ---
Patient in room MEHUL 357. I have received report from Gabriella Stratton and had the opportunity to ask questions and assume patient care. Addendum: 03/17/19 at 1834 by Huong Gilbert RN Amended: Links added.
--- NOTE | 2019-03-17 19:15 | NUR ---
bed alarm on pt confused only orientated to selp attempt to get out of bed and complete bed change done skin care inc of urine and purwicc applied in place. hs meds done afterwards.
[2019-03-17 19:30] VITALS: BP 152/88
[2019-03-17] MEDS: hydrALAZINE 20mg/ml inj. IV SCH (19:48)
--- NOTE | 2019-03-17 21:25 | NUR ---
pt resting eyes closed without s&s of distress at this time.
--- NOTE | 2019-03-17 22:05 | NUR ---
alert and wake laying in bed denies complaints
--- NOTE | 2019-03-17 22:58 | NUR ---
pt resting left side no s&s of distress at this time.
[2019-03-18] VITALS: BP 164/77
[2019-03-18] MEDS: metroNIDAZOLE-Flagyl 500mg/NS 100 ML IV SCH ×3 (00:13→15:21)
--- NOTE | 2019-03-18 00:32 | NUR ---
resting without changes purwicc in place.positioned to comfort.
--- NOTE | 2019-03-18 02:30 | NUR ---
pt repositioned self in bed.
[2019-03-18] MEDS: hydrALAZINE 20mg/ml inj. IV SCH ×4 (03:16→20:33)
--- NOTE | 2019-03-18 04:30 | NUR ---
pt resting no s&S of distress.
[2019-03-18 04:48] LABS: BASOPHILS % (AUTO) 0.2 % (0-1); EOSINOPHILS # (AUTO) 0.2 X10'3 (0-0.9); EOSINOPHILS % (AUTO) 1.6 % (0-6); HEMATOCRIT 32.5 % (35.0-45.0); HEMOGLOBIN 10.8 g/dl (12.0-16.0); LYMPHOCYTES # (AUTO) 1.2 X10'3 (1.1-4.8); LYMPHOCYTES % (AUTO) 10.2 % (21-51); MEAN CORPUSCULAR HEMOGLOBIN 29.1 PG (27.0-31.0); MEAN CORPUSCULAR HGB CONC 33.3 g/dL (33.0-36.5); MEAN CORPUSCULAR VOLUME 87.5 FL (78-98); MEAN PLATELET VOLUME 7.7 FL (7.4-10.4); MONOCYTES # (AUTO) 0.9 X10'3 (0-0.9); MONOCYTES % (AUTO) 8.1 % (2-12); NEUTROPHILS % (AUTO) 79.9 % (42-75); PLATELET COUNT 158 X10'3 (140-440); RED BLOOD COUNT 3.71 X10'6 (4.20-5.60); RED CELL DISTRIBUTION WIDTH 13.6 % (11.5-14.5); WHITE BLOOD COUNT 11.3 X10'3 (4.5-11.0)
[2019-03-18 05:05] LABS: ALANINE AMINOTRANSFERASE 66 U/L (12-78); ALBUMIN 2.6 G/DL (3.4-5.0); ALBUMIN/GLOBULIN RATIO 0.8 (1.1-1.5); ALKALINE PHOSPHATASE 156 IU/L (46-116); ANION GAP 10 (8-16); ASPARTATE AMINO TRANSFERASE 20 U/L (10-37); BILIRUBIN,TOTAL 0.5 MG/DL (0.1-1.0); BLOOD UREA NITROGEN 17 MG/DL (7-18); BUN/CREATININE RATIO 24.3 (6.6-38.0); CALCIUM 8.2 MG/DL (8.5-10.1); CHLORIDE 108 MMOL/L (99-107); GLUCOSE 111 MG/DL (70-104); MAGNESIUM 1.4 MG/DL (1.5-2.4); POTASSIUM 3.3 MMOL/L (3.5-5.1); SODIUM 139 MMOL/L (135-145); TOTAL CARBON DIOXIDE 21.4 MMOL/L (24-32); eGFR 81 ML/MIN
[2019-03-18 05:06] LABS: LIPASE 2132 U/L (73-393)
--- NOTE | 2019-03-18 05:33 | NUR ---
pt dozing on and off. no s&s of distress.
--- NOTE | 2019-03-18 06:34 | NUR ---
Problems reprioritized. Patient report given, questions answered & plan of care reviewed with SHANNAN BURNS. Addendum: 03/18/19 at 0634 by Huong Gilbert RN Amended: Links added.
--- NOTE | 2019-03-18 06:48 | NUR ---
Patient in room [facility] 357. I have received report from Huong BURNS and had the opportunity to ask questions and assume patient care.
[2019-03-18 07:20] VITALS: BP 153/60
[2019-03-18] MEDS: levoTHYROXINE 75mcg tablet PO SCH (08:10)
[2019-03-18] MEDS: lactobacillus rhamnosus 10,000 MMU CELLS/CAPSULE PO SCH ×2 (08:11→20:33)
[2019-03-18] MEDS: K and/or MAG REPLACEMENT MC SCH (08:14)
[2019-03-18] MEDS: ciprofloxacin lact 400MG/200ML 200 ML IV SCH ×2 (09:35→20:27)
[2019-03-18] MEDS: morphine 2 MG/ML inj. syringe IV PRN (09:40)
--- NOTE | 2019-03-18 10:15 | NUR ---
Patient with yancy Addendum: 03/18/19 at 1016 by Valencia Laguna RN Amended: Links added.
[2019-03-18 11:03] VITALS: BP_SYST 147; BP_SYST 164; BP_DIAS 63; BP_DIAS 66; BP_DIAS 82
--- NOTE | 2019-03-18 11:36 | NUR ---
2 Mg MS give @ 0940, clicked the 1 mg by accident. Corrected eMAR.
[2019-03-18 12:23] VITALS: BP 164/82
[2019-03-18 12:26] LABS: PRE OP PARTIAL THROMB. TIME 27 SECONDS (22-32)
[2019-03-18] MEDS: normal saline 1000ml 1,000 ML IV SCH (13:31)
--- NOTE | 2019-03-18 18:26 | NUR ---
Patient in room [facility] 357. I have received report from Huong BURNS and had the opportunity to ask questions and assume patient care.
[2019-03-18 19:00] VITALS: BP 156/75
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
--- NOTE | 2019-03-18 19:30 | NUR ---
Dr Michel rounding with charger operator asked pt a few questions regarding her surgical history. she could only tell him she had an appy nothing about hyster or any other history. gerri Sexton plans on being available by phone to give surgical consent tomorrow. pt is aware she will have surgery tomorrow for her gallbladder from Dr Michel and staff. gerri Rowley talked with her earlier on the phone regarding it.
--- NOTE | 2019-03-18 21:00 | NUR ---
bedbath in chair done and preop start of skin prep done tonight for pt.
--- NOTE | 2019-03-18 21:45 | NUR ---
pt transferred into clean bed with clean liens after hair was washed as well.
--- NOTE | 2019-03-18 22:48 | NUR ---
pt resting eyes closed without s&s of distress at this time.
[2019-03-19] VITALS (11 sets, daily range): BP systolic 110–147; BP diastolic 51–78
--- NOTE | 2019-03-19 | NUR ---
repositioned in bed no s&s of distress.
[2019-03-19] MEDS: metroNIDAZOLE-Flagyl 500mg/NS 100 ML IV SCH ×4 (01:00→23:55)
[2019-03-19] MEDS: hydrALAZINE 20mg/ml inj. IV SCH ×4 (02:10→20:00)
--- NOTE | 2019-03-19 03:30 | NUR ---
repsotioned in bed no changes.
[2019-03-19] MEDS: normal saline 1000ml 1,000 ML IV SCH ×2 (05:17→23:32)
--- NOTE | 2019-03-19 05:24 | NUR ---
pt resting eyes closed without changes.
--- NOTE | 2019-03-19 05:25 | NUR ---
new iv and tubing hung.
[2019-03-19 05:37] LABS: BASOPHILS % (AUTO) 0.3 % (0-1); EOSINOPHILS # (AUTO) 0.2 X10'3 (0-0.9); EOSINOPHILS % (AUTO) 1.8 % (0-6); HEMATOCRIT 32.3 % (35.0-45.0); LYMPHOCYTES # (AUTO) 0.9 X10'3 (1.1-4.8); LYMPHOCYTES % (AUTO) 8.3 % (21-51); MEAN CORPUSCULAR HEMOGLOBIN 29.8 PG (27.0-31.0); MEAN CORPUSCULAR HGB CONC 34.2 g/dL (33.0-36.5); MEAN PLATELET VOLUME 7.4 FL (7.4-10.4); MONOCYTES # (AUTO) 0.9 X10'3 (0-0.9); MONOCYTES % (AUTO) 7.9 % (2-12); NEUTROPHILS # (AUTO) 8.9 X10'3 (1.8-7.7); NEUTROPHILS % (AUTO) 81.7 % (42-75); PLATELET COUNT 184 X10'3 (140-440); RED BLOOD COUNT 3.71 X10'6 (4.20-5.60); RED CELL DISTRIBUTION WIDTH 13.8 % (11.5-14.5); WHITE BLOOD COUNT 10.9 X10'3 (4.5-11.0)
[2019-03-19 05:43] LABS: ALANINE AMINOTRANSFERASE 52 U/L (12-78); ALBUMIN 2.5 G/DL (3.4-5.0); ALBUMIN/GLOBULIN RATIO 0.7 (1.1-1.5); ALKALINE PHOSPHATASE 199 IU/L (46-116); ANION GAP 12 (8-16); ASPARTATE AMINO TRANSFERASE 29 U/L (10-37); BILIRUBIN,TOTAL 0.4 MG/DL (0.1-1.0); BLOOD UREA NITROGEN 24 MG/DL (7-18); BUN/CREATININE RATIO 29.3 (6.6-38.0); CALCIUM 8.3 MG/DL (8.5-10.1); CHLORIDE 109 MMOL/L (99-107); CREATININE 0.82 MG/DL (0.40-0.90); GLUCOSE 114 MG/DL (70-104); MAGNESIUM 1.6 MG/DL (1.5-2.4); SODIUM 141 MMOL/L (135-145); eGFR 68 ML/MIN
[2019-03-19 05:44] LABS: LIPASE 2099 U/L (73-393)
--- NOTE | 2019-03-19 06:24 | NUR ---
Patient in room [facility] 357. I have received report from Huong BURNS and had the opportunity to ask questions and assume patient care.
--- NOTE | 2019-03-19 06:25 | NUR ---
Problems reprioritized. Patient report given, questions answered & plan of care reviewed with Valencia Stratton. Addendum: 03/19/19 at 0720 by Huong Gilbert RN Amended: Links added.
[2019-03-19] MEDS: K and/or MAG REPLACEMENT MC SCH (07:27)
[2019-03-19] MEDS: levoTHYROXINE 75mcg tablet PO SCH (07:38)
[2019-03-19] MEDS: lactobacillus rhamnosus 10,000 MMU CELLS/CAPSULE PO SCH ×2 (08:00→20:00)
--- NOTE | 2019-03-19 09:27 | NUR ---
Beltran Sexton will need to be called for consent. Phone number in SBAR and he is aware. Darshan is the only person to give information concerning patients situation and medical information. Beltran Roland is not to have information concerning patient, known to security. Addendum: 03/19/19 at 4880 by Valencia Laguna RN Amended: Links added.
[2019-03-19] MEDS: ciprofloxacin lact 400MG/200ML 200 ML IV SCH (09:31)
[2019-03-19] MEDS: morphine 2 MG/ML inj. syringe IV PRN (09:35)
[2019-03-19] MEDS ORDERED: ceFAZolin 1000mg inj ONE (11:13)
[2019-03-19] MEDS ORDERED: BUPIVAcaine/PF 2.5 mg/ml (0.25%) 30ml vial ONE (11:13)
--- NOTE | 2019-03-19 15:01 | NUR ---
Initial: Pt admit w/ choledocholithiasis and gallstone pancreatitis s/p failed ERCP from severe swelling in second portion of duodenum per MD note. Currently NPO for OR today for cholecystectomy. LBM 03/18 per EMR; 0% full liquids brief diet order 03/18. Will monitor for diet advancement and additional protein needs as well as malnutrition criteria post-op given low PO w/ dementia hx. Rec: 1. advance diet per MD to regular post-op 2. monitor for ONS needs post-op once PO 3. weekly wts Addendum: 03/19/19 at [address] Amended: Links added.
--- NOTE | 2019-03-19 18:05 | NUR ---
Problems reprioritized. Patient report given, questions answered & plan of care reviewed with Arlet BURNS.
--- NOTE | 2019-03-19 18:15 | NUR ---
OR aware that patients son will need to be called to consent patient, Darshan Reyes [phone],he lives in [place]. Coral, sister and Jaelyn, niece, can know all information per patient. Darshan is aware that he will be called tonight before surgery.
--- NOTE | 2019-03-19 18:25 | NUR ---
Patient in room [facility] 357. I have received report from KATY [place] and had the opportunity to ask questions and assume patient care.
--- NOTE | 2019-03-19 18:52 | NUR ---
Patient went down to OR
[2019-03-19] MEDS ORDERED: rocuronium 10mg/ml inj IV ONE (18:57)
[2019-03-19] MEDS ORDERED: ondansetron/PF 4mg/2ml inj ONE (18:57)
[2019-03-19] MEDS ORDERED: etomidate 2mg/ml inj. ONE (18:57)
[2019-03-19] MEDS ORDERED: LIDOcaine 1% (10mg/ml) 2ml vial ONE (19:01)
[2019-03-19] MEDS ORDERED: fentaNYL/PF 50MCG/1 ML 2ML syringe ONE (20:01)
[2019-03-19] MEDS ORDERED: MIDAZolam 5mg/5ml vial ONE (20:02)
[2019-03-19] MEDS ORDERED: sevoflurane 250ml liquid IH ONE (20:02)
[2019-03-19] MEDS ORDERED: neostigmine methylsulfate 1 MG/ML 10ml vial ONE (20:02)
[2019-03-19] MEDS ORDERED: glycopyrrolate 0.2mg/ml inj ONE (20:02)
[2019-03-19] MEDS ORDERED: dexamethasone sod phosphate 10mg/ml inj ONE (20:02)
[2019-03-19] MEDS ORDERED: hydrALAZINE 20mg/ml inj. IV ONE (20:02)
[2019-03-19] MEDS ORDERED: ringers solution, lacted 1,000 ML IV SCH ×2 (21:19→22:24)
[2019-03-19] MEDS ORDERED: hydrALAZINE 20mg/ml inj. IV PRN (21:20)
[2019-03-19] MEDS ORDERED: labetalol 20mg/4ml (5mg/ml) syringe IV PRN (21:20)
[2019-03-19] MEDS ORDERED: ondansetron/PF 4mg/2ml inj IV PRN ×2 (21:20→22:25)
[2019-03-19] MEDS ORDERED: fentaNYL/PF 50MCG/1 ML 2ML syringe IV PRN ×2 (21:20)
[2019-03-19] MEDS ORDERED: morphine 4 MG/ML inj SYRINge IV PRN ×2 (21:20)
[2019-03-19] MEDS ORDERED: labetalol 20mg/4ml (5mg/ml) syringe IV ONE (21:47)
[2019-03-19] MEDS ORDERED: midazolam 2 mg/2 ml injection ONE (22:44)
--- NOTE | 2019-03-19 22:45 | NUR ---
Received from OR via , accompanied by Anesthesiologist DR WANG and report given by Anesthesiolgist. PT IS RESTLESS, IV SEDATION GIVEN BY ICU NURSES, MOVING EXT X 4, ABD HAS 7 LAP SITES WITH BA'S, SCD'S RIGHT EJ TLC WITH NS 100ML/HR, VSS, VENT SET TO FI02 70% AND PEEP OF 5.
--- NOTE | 2019-03-19 23:13 | NUR ---
Report called to receiving nurse. PT RECOVERED IN ICU Belongings . Special Issues communicated to receiving nurse CLAIRE BURNS. PT IS SEDATED AND RESTING COMFORTABLEY, ET TUBE 22 AT TEETH, FIO2 70, PEEP OF 5, RIGHT EJ PATENT WITH NS 100ML/HR, SCDS, LAP SITES CD, PAIN MEDICATION GIVEN BY ICU NURSES. PT MEETS DISCHARGE CRITERIA.
--- NOTE | 2019-03-19 23:30 | NUR ---
Patient in room CICU 2008. I have received report from KATY Caponesecurity controls assessor RN who is at bedside and had the opportunity to ask questions and assume patient care. Patient out of OR with OR crew to room 2008. Orders for sedation obtained from Amanda Johnston NP who is also at bedside. Chest x-ray ordered, ETT to the right mainstem, RT pulled back the tube.
[2019-03-19] MEDS ORDERED: ipratropium/albuterol 3ml nebule NEB PRN (23:35)
[2019-03-19 23:36] LABS: ABG BASE EXCESS -7.3 mmol/L (-2.0-3.0); ABG HCO3 17.6 mmol/L (22.0-26.0); ABG OXYGEN SATURATION 97.8 % (95-98); ABG PCO2 (T) 31.9 mmHg (35.0-45.0); ABG PH (T) 7.354 (7.350-7.450); ABG PO2 (T) 109.7 mmHg (83-108); ALLEN'S TEST Positive; FCOHb 0.3 % (0.5-1.5); FMetHb 0.3 % (0.3-1.12); FO2Hb 97.2 % (94-100); MINUTE VOLUME 8 L/min; PEEP 5 cm H2O; RESPIRATORY RATE 16 b/min; RESPIRATORY RATE (OBSERVED) 22 b/min; TIDAL VOLUME 400 mL; TOTAL HEMOGLOBIN 11.9 G/dl (12.0-16.0)
[2019-03-19] MEDS: midazolam 100mg in NS 100ml 100 ML IV PRN (23:53)
[2019-03-19] MEDS: FENTANYL-0.9 % NACL/PF 100 ML IV PRN (23:53)
[2019-03-20] VITALS (28 sets, daily range): BP systolic 89–140; BP diastolic 47–81
[2019-03-20] MEDS: ciprofloxacin lact 400MG/200ML 200 ML IV SCH ×2 (01:10→13:21)
[2019-03-20 01:42] LABS: ALANINE AMINOTRANSFERASE 41 U/L (12-78); ALBUMIN 2.2 G/DL (3.4-5.0); ALBUMIN/GLOBULIN RATIO 0.7 (1.1-1.5); ALKALINE PHOSPHATASE 158 IU/L (46-116); ANION GAP 11 (8-16); ASPARTATE AMINO TRANSFERASE 27 U/L (10-37); BILIRUBIN,TOTAL 0.3 MG/DL (0.1-1.0); BLOOD UREA NITROGEN 19 MG/DL (7-18); CALCIUM 7.7 MG/DL (8.5-10.1); CHLORIDE 112 MMOL/L (99-107); CREATININE 0.76 MG/DL (0.40-0.90); GLUCOSE 140 MG/DL (70-104); LIPASE 1128 U/L (73-393); MAGNESIUM 1.5 MG/DL (1.5-2.4); PHOSPHORUS 3.1 MG/DL (2.3-4.5); POTASSIUM 3.4 MMOL/L (3.5-5.1); SODIUM 143 MMOL/L (135-145); TOTAL CARBON DIOXIDE 19.8 MMOL/L (24-32); TOTAL PROTEIN 5.4 G/DL (6.4-8.2); eGFR 74 ML/MIN
[2019-03-20 01:56] LABS: BASOPHILS % (AUTO) 0.1 % (0-1); EOSINOPHILS # (AUTO) 0.1 X10'3 (0-0.9); EOSINOPHILS % (AUTO) 0.9 % (0-6); HEMATOCRIT 30.8 % (35.0-45.0); HEMOGLOBIN 10.5 g/dl (12.0-16.0); LYMPHOCYTES # (AUTO) 0.4 X10'3 (1.1-4.8); LYMPHOCYTES % (AUTO) 4.1 % (21-51); MEAN CORPUSCULAR HEMOGLOBIN 29.9 PG (27.0-31.0); MEAN CORPUSCULAR HGB CONC 34.2 g/dL (33.0-36.5); MEAN CORPUSCULAR VOLUME 87.3 FL (78-98); MEAN PLATELET VOLUME 7.5 FL (7.4-10.4); MONOCYTES # (AUTO) 0.8 X10'3 (0-0.9); MONOCYTES % (AUTO) 7.6 % (2-12); NEUTROPHILS # (AUTO) 9.5 X10'3 (1.8-7.7); NEUTROPHILS % (AUTO) 87.3 % (42-75); PLATELET COUNT 186 X10'3 (140-440); RED BLOOD COUNT 3.53 X10'6 (4.20-5.60); RED CELL DISTRIBUTION WIDTH 14.1 % (11.5-14.5); WHITE BLOOD COUNT 10.8 X10'3 (4.5-11.0)
[2019-03-20] MEDS: hydrALAZINE 20mg/ml inj. IV SCH ×4 (02:00→20:00)
[2019-03-20] MEDS: potassium CL 10mEq/100ml bag 100 ML IV PRN ×4 (03:09→08:19)
[2019-03-20 03:26] LABS: ABG BASE EXCESS -4.4 mmol/L (-2.0-3.0); ABG HCO3 18.8 mmol/L (22.0-26.0); ABG OXYGEN SATURATION 98.1 % (95-98); ABG PCO2 (T) 27.2 mmHg (35.0-45.0); ABG PH (T) 7.454 (7.350-7.450); ABG PO2 (T) 116.9 mmHg (83-108); ALLEN'S TEST Positive; FCOHb 0.2 % (0.5-1.5); FMetHb 0.2 % (0.3-1.12); FO2Hb 97.7 % (94-100); MINUTE VOLUME 7 L/min; PATIENT TEMPERATURE 35.9; PEEP 5 cm H2O; RESPIRATORY RATE 16 b/min; TIDAL VOLUME 400 mL; TOTAL HEMOGLOBIN 10.5 G/dl (12.0-16.0)
[2019-03-20] MEDS: midazolam 100mg in NS 100ml 100 ML IV PRN (05:13)
--- NOTE | 2019-03-20 06:15 | NUR ---
Patient in room CICU 2008. I have received report from retail shift supervisor and had the opportunity to ask questions and assume patient care.
--- NOTE | 2019-03-20 06:26 | NUR ---
Problems reprioritized. Patient report given, questions answered & plan of care reviewed with KATY Gonzalez.
[2019-03-20] MEDS: levoTHYROXINE 75mcg tablet PO SCH (08:00)
[2019-03-20] MEDS: lactobacillus rhamnosus 10,000 MMU CELLS/CAPSULE PO SCH ×2 (08:00→20:45)
[2019-03-20] MEDS: pantoprazole 40 MG vial IV SCH (08:19)
[2019-03-20] MEDS: metroNIDAZOLE-Flagyl 500mg/NS 100 ML IV SCH ×3 (08:19→23:51)
[2019-03-20] MEDS ORDERED: furosemide 40mg/4ml inj IV ONE (08:30)
[2019-03-20] MEDS: K and/or MAG REPLACEMENT MC SCH (08:44)
[2019-03-20] MEDS ORDERED: furosemide 40mg/4ml inj ONE (08:46)
[2019-03-20] MEDS: normal saline 1000ml 1,000 ML IV SCH (14:58)
[2019-03-20] MEDS: FENTANYL-0.9 % NACL/PF 100 ML IV PRN (17:51)
--- NOTE | 2019-03-20 18:15 | NUR ---
Problems reprioritized. Patient report given, questions answered & plan of care reviewed with oncoming shift.
--- NOTE | 2019-03-20 18:28 | NUR ---
assumed care from harshad aden no questions or concerns after SBAR
--- NOTE | 2019-03-20 20:00 | NUR ---
patient in bed covers on eyes closed rr even un labored no observable s/s of acute stress at this time
[2019-03-20] MEDS ORDERED: potassium CL 10mEq/100ml bag 100 ML IV PRN (20:40)
[2019-03-20] MEDS ORDERED: potassium Cl 20 mEq SR tablet PO PRN (20:40)
--- NOTE | 2019-03-20 20:41 | NUR ---
spoke with Candice DUFFY onm tele phone regarding patients k at 3.4 today and if i should administer the lasix oredered, July NURSE ANESTHESIA PROGRAM DIRECTOR stated telephone order to put k replacement protocol in and to administer the ordered dose and to watch for ectopy and draw a.am. labs early for chance of replacement before ectopy
[2019-03-20] MEDS: furosemide 40mg/4ml inj IV SCH (20:45)
[2019-03-21] VITALS (24 sets, daily range): BP systolic 95–134; BP diastolic 50–70
--- NOTE | 2019-03-21 00:28 | NUR ---
patients rr even un labored no observable s/s of acute stress at this time
[2019-03-21] MEDS: ciprofloxacin lact 400MG/200ML 200 ML IV SCH ×2 (01:04→14:30)
[2019-03-21] MEDS: hydrALAZINE 20mg/ml inj. IV SCH ×4 (02:00→20:00)
[2019-03-21] MEDS: mineral oil/petrolatum ophthal oint EACHEYE SCH ×4 (02:18→20:00)
--- NOTE | 2019-03-21 02:35 | NUR ---
patient in bed eyes closed rr even un labored no observable s/s of acute stress at this time
[2019-03-21] MEDS: normal saline 1000ml 1,000 ML IV SCH (02:48)
[2019-03-21 03:43] LABS: BASOPHILS % (AUTO) 0.2 % (0-1); EOSINOPHILS # (AUTO) 0.3 X10'3 (0-0.9); EOSINOPHILS % (AUTO) 3.7 % (0-6); HEMATOCRIT 26.5 % (35.0-45.0); HEMOGLOBIN 8.9 g/dl (12.0-16.0); LYMPHOCYTES # (AUTO) 0.5 X10'3 (1.1-4.8); LYMPHOCYTES % (AUTO) 6.5 % (21-51); MEAN CORPUSCULAR HGB CONC 33.8 g/dL (33.0-36.5); MEAN CORPUSCULAR VOLUME 88.8 FL (78-98); MEAN PLATELET VOLUME 7.8 FL (7.4-10.4); MONOCYTES # (AUTO) 0.5 X10'3 (0-0.9); MONOCYTES % (AUTO) 6.4 % (2-12); NEUTROPHILS # (AUTO) 6.2 X10'3 (1.8-7.7); NEUTROPHILS % (AUTO) 83.2 % (42-75); PLATELET COUNT 139 X10'3 (140-440); RED BLOOD COUNT 2.98 X10'6 (4.20-5.60); RED CELL DISTRIBUTION WIDTH 14.2 % (11.5-14.5); WHITE BLOOD COUNT 7.5 X10'3 (4.5-11.0)
[2019-03-21 04:05] LABS: ALANINE AMINOTRANSFERASE 27 U/L (12-78); ALBUMIN 1.8 G/DL (3.4-5.0); ALBUMIN/GLOBULIN RATIO 0.6 (1.1-1.5); ALKALINE PHOSPHATASE 109 IU/L (46-116); ANION GAP 9 (8-16); ASPARTATE AMINO TRANSFERASE 17 U/L (10-37); BILIRUBIN,TOTAL 0.3 MG/DL (0.1-1.0); BLOOD UREA NITROGEN 15 MG/DL (7-18); CALCIUM 7.2 MG/DL (8.5-10.1); CHLORIDE 111 MMOL/L (99-107); CREATININE 0.94 MG/DL (0.40-0.90); GLUCOSE 125 MG/DL (70-104); MAGNESIUM 1.4 MG/DL (1.5-2.4); PHOSPHORUS 3.1 MG/DL (2.3-4.5); POTASSIUM 3.2 MMOL/L (3.5-5.1); SODIUM 142 MMOL/L (135-145); TOTAL CARBON DIOXIDE 22.4 MMOL/L (24-32); TOTAL PROTEIN 4.7 G/DL (6.4-8.2); eGFR 58 ML/MIN
--- NOTE | 2019-03-21 04:07 | NUR ---
patient in bed eyes closed, sedation turned down, patient has been put on cpap/ps by RT and is doing well, patients rr even un labored no observable s/s of acute stress at this time
[2019-03-21] MEDS: potassium Cl 20mEq/100mL bag 100 ML IV PRN ×2 (04:14→05:27)
--- NOTE | 2019-03-21 06:00 | NUR ---
Patient in room CICU 2008. I have received report from Everett BURNS, and had the opportunity to ask questions and assume patient care.
--- NOTE | 2019-03-21 06:16 | NUR ---
sbar to loreto no questions or concerns after SBAR
[2019-03-21] MEDS: pantoprazole 40 MG vial IV SCH (07:42)
[2019-03-21] MEDS: lactobacillus rhamnosus 10,000 MMU CELLS/CAPSULE PO SCH ×2 (07:42→20:07)
[2019-03-21] MEDS: furosemide 40mg/4ml inj IV SCH (07:42)
[2019-03-21] MEDS: metroNIDAZOLE-Flagyl 500mg/NS 100 ML IV SCH ×3 (07:43→23:54)
[2019-03-21] MEDS: K and/or MAG REPLACEMENT MC SCH (08:00)
[2019-03-21] MEDS ORDERED: levoTHYROXINE sod inj. 100mcg/5 ml vial IV SCH (08:00)
[2019-03-21 08:31] LABS: LIPASE 1104 U/L (73-393)
--- NOTE | 2019-03-21 14:35 | NUR ---
Received report from Crissy. Pt stable and sleeping. No s/s of distress
--- NOTE | 2019-03-21 18:10 | NUR ---
Problems reprioritized. Patient report given, questions answered & plan of care reviewed with KATY Floyd.
--- NOTE | 2019-03-21 18:13 | NUR ---
assumed care from Josie BURNS no questions or concerns after SBAR
--- NOTE | 2019-03-21 20:00 | NUR ---
patient in bed eyes closed covers on rr even un labored no observable s/s of acute stress at this time
--- NOTE | 2019-03-21 21:44 | NUR ---
patient in bed supine eyes closed covers on rr even un labored no observable s/s of acute stress at this time
--- NOTE | 2019-03-21 23:40 | NUR ---
patient in bed supine pillows floating extremities, rr even un labored no observable s/s of acute stress at this time
[2019-03-22] VITALS (17 sets, daily range): BP systolic 93–160; BP diastolic 49–75
[2019-03-22] MEDS: hydrALAZINE 20mg/ml inj. IV SCH ×4 (02:00→21:09)
[2019-03-22] MEDS: mineral oil/petrolatum ophthal oint EACHEYE SCH ×3 (02:00→14:00)
--- NOTE | 2019-03-22 02:30 | NUR ---
patient in bed eyes closed rr even un labored no observable s/s of acute stress at this time
[2019-03-22] MEDS: ciprofloxacin lact 400MG/200ML 200 ML IV SCH ×2 (03:29→13:03)
[2019-03-22 03:50] LABS: BASOPHILS % (AUTO) 0.3 % (0-1); EOSINOPHILS # (AUTO) 0.4 X10'3 (0-0.9); EOSINOPHILS % (AUTO) 4.6 % (0-6); HEMATOCRIT 27.6 % (35.0-45.0); HEMOGLOBIN 9.2 g/dl (12.0-16.0); LYMPHOCYTES # (AUTO) 0.8 X10'3 (1.1-4.8); LYMPHOCYTES % (AUTO) 10.5 % (21-51); MEAN CORPUSCULAR HEMOGLOBIN 29.4 PG (27.0-31.0); MEAN CORPUSCULAR HGB CONC 33.4 g/dL (33.0-36.5); MEAN CORPUSCULAR VOLUME 88.1 FL (78-98); MEAN PLATELET VOLUME 7.4 FL (7.4-10.4); MONOCYTES # (AUTO) 0.6 X10'3 (0-0.9); MONOCYTES % (AUTO) 7.9 % (2-12); NEUTROPHILS # (AUTO) 6.1 X10'3 (1.8-7.7); NEUTROPHILS % (AUTO) 76.7 % (42-75); PLATELET COUNT 143 X10'3 (140-440); RED BLOOD COUNT 3.14 X10'6 (4.20-5.60); RED CELL DISTRIBUTION WIDTH 13.9 % (11.5-14.5)
[2019-03-22] MEDS: ondansetron/PF 4mg/2ml inj IV PRN (03:55)
[2019-03-22] MEDS: HYDROcodone/acetaminophen 5mg/325mg tablet PO PRN (03:55)
[2019-03-22 04:07] LABS: ALANINE AMINOTRANSFERASE 39 U/L (12-78); ALBUMIN/GLOBULIN RATIO 0.6 (1.1-1.5); ALKALINE PHOSPHATASE 409 IU/L (46-116); ANION GAP 7 (8-16); ASPARTATE AMINO TRANSFERASE 73 U/L (10-37); BILIRUBIN,TOTAL 0.5 MG/DL (0.1-1.0); BLOOD UREA NITROGEN 18 MG/DL (7-18); BUN/CREATININE RATIO 18.8 (6.6-38.0); CHLORIDE 110 MMOL/L (99-107); CREATININE 0.96 MG/DL (0.40-0.90); GLUCOSE 108 MG/DL (70-104); POTASSIUM 3.4 MMOL/L (3.5-5.1); SODIUM 142 MMOL/L (135-145); TOTAL CARBON DIOXIDE 24.7 MMOL/L (24-32); TOTAL PROTEIN 5.2 G/DL (6.4-8.2); eGFR 57 ML/MIN
[2019-03-22] MEDS: potassium Cl 20mEq/100mL bag 100 ML IV PRN ×2 (04:35→05:50)
--- NOTE | 2019-03-22 05:23 | NUR ---
patient appears to be resting comfortably in bed after pain medication, eyes closed covers on rr even un labored no observable s/s of acute stress at this time
--- NOTE | 2019-03-22 06:30 | NUR ---
SBAR to Wellington BURNS no questions or concerns after receiving report
--- NOTE | 2019-03-22 07:07 | NUR ---
Patient in room CICU 2009. I have received report from guy and had the opportunity to ask questions and assume patient care.
[2019-03-22 07:48] LABS: LIPASE 1316 U/L (73-393)
[2019-03-22] MEDS: K and/or MAG REPLACEMENT MC SCH (08:00)
[2019-03-22] MEDS: lactobacillus rhamnosus 10,000 MMU CELLS/CAPSULE PO SCH ×2 (08:13→21:09)
[2019-03-22] MEDS: metroNIDAZOLE-Flagyl 500mg/NS 100 ML IV SCH ×3 (08:14→23:29)
[2019-03-22] MEDS: furosemide 40mg/4ml inj IV SCH (08:15)
[2019-03-22] MEDS: potassium Cl 20 mEq SR tablet PO PRN ×3 (12:12→23:29)
--- NOTE | 2019-03-22 13:25 | NUR ---
Problems reprioritized. Patient report given, questions answered & plan of care reviewed with Deon revenue liaison
--- NOTE | 2019-03-22 14:06 | NUR ---
Pt tranferred to PCU,room 3028B via recliner chair with all belongings,transferred to bed via Stedylift,report to KATY Chavarria. with update regarding pauses/dropped beats on moniter,found on review just before transfer.Report also given to PCU moniter tech regarding occ dropped beats noted last 24 hrs. Pt asymptomatic,BP remains stable,meds reviewed
--- NOTE | 2019-03-22 16:16 | NUR ---
Reassessment: Diet advanced this morning to mechanical soft, chopped foods and thin liquids per LEAD REFINERY SUPERVISOR recs. Eating 25-49% average so far. Patient is s/p lap cholecystectomy. No BM since 03/18 and is receiving pain medications. Does have bowel care prn, not given yet. Patient would benefit from bowel care in view of constipation, d/w RN. Rec: 1. continue mechanical soft diet with chopped foods 2. monitor for ONS needs 3. bowel care as needed, no BM since 03/18 4. weekly wts Addendum: 03/22/19 at [address] Amended: Links added.
--- NOTE | 2019-03-22 18:25 | NUR ---
Problems reprioritized. Patient report given, questions answered & plan of care reviewed with KATY Zepeda.
--- NOTE | 2019-03-22 18:27 | NUR ---
Patient in room PCU 3028. I have received report from Rishi BURNS and had the opportunity to ask questions and assume patient care.
[2019-03-22] MEDS: HYDROcodone/acetaminophen 10/325mg tab PO PRN ×2 (19:30→23:30)
[2019-03-22] MEDS: lisinopril 20mg tablet PO SCH (21:09)
[2019-03-22] MEDS: atorvastatin 20mg tablet PO SCH (21:10)
[2019-03-23] VITALS (7 sets, daily range): BP systolic 102–155; BP diastolic 44–88
[2019-03-23] MEDS: ciprofloxacin lact 400MG/200ML 200 ML IV SCH ×2 (01:14→13:29)
[2019-03-23] MEDS: hydrALAZINE 20mg/ml inj. IV SCH ×4 (02:56→20:00)
[2019-03-23] MEDS: normal saline 1000ml 1,000 ML IV SCH (05:16)
[2019-03-23 05:37] LABS: ALANINE AMINOTRANSFERASE 127 U/L (12-78); ALBUMIN 2.3 G/DL (3.4-5.0); ALBUMIN/GLOBULIN RATIO 0.6 (1.1-1.5); ANION GAP 6 (8-16); ASPARTATE AMINO TRANSFERASE 258 U/L (10-37); BLOOD UREA NITROGEN 19 MG/DL (7-18); BUN/CREATININE RATIO 20.2 (6.6-38.0); CALCIUM 8.8 MG/DL (8.5-10.1); CHLORIDE 106 MMOL/L (99-107); CREATININE 0.94 MG/DL (0.40-0.90); GLUCOSE 148 MG/DL (70-104); PHOSPHORUS 2.5 MG/DL (2.3-4.5); POTASSIUM 4.4 MMOL/L (3.5-5.1); SODIUM 139 MMOL/L (135-145); eGFR 58 ML/MIN
[2019-03-23 05:40] LABS: BASOPHILS % (AUTO) 0.3 % (0-1); EOSINOPHILS # (AUTO) 0.4 X10'3 (0-0.9); EOSINOPHILS % (AUTO) 3.9 % (0-6); HEMATOCRIT 31.1 % (35.0-45.0); HEMOGLOBIN 10.6 g/dl (12.0-16.0); LYMPHOCYTES # (AUTO) 0.8 X10'3 (1.1-4.8); LYMPHOCYTES % (AUTO) 8.9 % (21-51); MEAN CORPUSCULAR HEMOGLOBIN 29.8 PG (27.0-31.0); MEAN CORPUSCULAR VOLUME 87.6 FL (78-98); MEAN PLATELET VOLUME 8.1 FL (7.4-10.4); MONOCYTES # (AUTO) 0.7 X10'3 (0-0.9); MONOCYTES % (AUTO) 8.2 % (2-12); NEUTROPHILS # (AUTO) 7.1 X10'3 (1.8-7.7); NEUTROPHILS % (AUTO) 78.7 % (42-75); PLATELET COUNT 180 X10'3 (140-440); RED BLOOD COUNT 3.55 X10'6 (4.20-5.60)
[2019-03-23 05:41] LABS: ALKALINE PHOSPHATASE 1195 IU/L (46-116)
--- NOTE | 2019-03-23 06:15 | NUR ---
Problems reprioritized. Patient report given, questions answered & plan of care reviewed with Rishi BURNS.
--- NOTE | 2019-03-23 07:00 | NUR ---
Patient in room PCU 3028. I have received report from KATY Brito and had the opportunity to ask questions and assume patient care.
[2019-03-23] MEDS: K and/or MAG REPLACEMENT MC SCH (07:07)
[2019-03-23] MEDS: levoTHYROXINE 75mcg tablet PO SCH (07:15)
--- NOTE | 2019-03-23 07:18 | NUR ---
PAGER ID: [phone] MESSAGE: [phone] Demetrius Levy: The was wondering if you could come and talk with her, she has some concerns with the hematuria. KATY Blackwell Ext [phone] Addendum: 03/23/19 at 0840 by Rishi Downing RN wrong patient
--- NOTE | 2019-03-23 07:18 | NUR ---
0715 ATTEMPTED TO PERFORM EZ PAP WITH PT, PT VERY SLEEPY UNABLE WITH VERY POOR CONCENTRATION. PT COMPLETED 1 SET OF 10 BREATHS WITH A LOT OF ASSISTANCE AND COACHING. Addendum: 03/23/19 at 0728 by Carey West RT Amended: Links added.
[2019-03-23] MEDS: lactobacillus rhamnosus 10,000 MMU CELLS/CAPSULE PO SCH ×2 (07:40→19:29)
[2019-03-23] MEDS: pantoprazole 40mg Tablet.DR PO SCH (07:40)
[2019-03-23] MEDS: magnesium hydroxide 30ml (MOM) UD suspension PO SCH (07:40)
[2019-03-23] MEDS: aspirin 81mg tab.chew PO SCH (07:40)
[2019-03-23] MEDS: lisinopril 20mg tablet PO SCH ×2 (07:41→19:30)
[2019-03-23] MEDS: furosemide 40mg/4ml inj IV SCH (07:44)
[2019-03-23] MEDS: metroNIDAZOLE-Flagyl 500mg/NS 100 ML IV SCH ×3 (07:51→23:48)
--- NOTE | 2019-03-23 10:40 | NUR ---
1040 EZPAP TX. ATTEMPTED TO PERFORM EZPAP TX WITH PT AGAIN, PT UNCOOPERATIVE AND HAS VERY POOR CONCENTRATION. TRIED TO ASSIST AND INSTRUCT PT THROUGH EZPAP AND PT STATED THAT SHE "CANT STAND IT" PT HR 72 SPO2 98% ON RA. NO SOB OR DISTRESS NOTED. WILL TRY AGAIN AT 1500. Addendum: 03/23/19 at 1042 by Carey West RT Amended: Links added.
[2019-03-23] MEDS: bisacodyl 10mg suppository rectal RC SCH (15:27)
--- NOTE | 2019-03-23 16:29 | NUR ---
PAGER ID: [phone] MESSAGE: [phone] Sonja Trammell: 24 hr tele order has , do you want us to DC tele (patient is sinus rhythm). KATY Blackwell Ext [phone]
--- NOTE | 2019-03-23 17:33 | NUR ---
Unsuccessful in establishing a new IV.
--- NOTE | 2019-03-23 18:30 | NUR ---
Dr. Henry notified of 32 beat run of [facility]. To transfuse a unit of PRBC as ordered. Addendum: 03/23/19 at 1833 by Alisha Cohen RN Jeffrey pt. f/the above note.
--- NOTE | 2019-03-23 18:35 | NUR ---
Patient in room PCU 3028. I have received report from Rishi BURNS and had the opportunity to ask questions and assume patient care.
[2019-03-23] MEDS: HYDROcodone/acetaminophen 10/325mg tab PO PRN ×2 (19:30→23:48)
[2019-03-23] MEDS: atorvastatin 20mg tablet PO SCH (21:54)
[2019-03-24] MEDS: hydrALAZINE 20mg/ml inj. IV SCH ×4 (01:54→20:00)
[2019-03-24] MEDS: ciprofloxacin lact 400MG/200ML 200 ML IV SCH ×2 (01:55→13:15)
[2019-03-24 02:00] VITALS: BP 125/80
[2019-03-24] MEDS: normal saline 1000ml 1,000 ML IV SCH (02:03)
[2019-03-24 05:53] LABS: BASOPHILS % (AUTO) 0.3 % (0-1); EOSINOPHILS # (AUTO) 0.5 X10'3 (0-0.9); EOSINOPHILS % (AUTO) 5.9 % (0-6); HEMATOCRIT 30.7 % (35.0-45.0); HEMOGLOBIN 10.2 g/dl (12.0-16.0); LYMPHOCYTES # (AUTO) 1.2 X10'3 (1.1-4.8); LYMPHOCYTES % (AUTO) 12.7 % (21-51); MEAN CORPUSCULAR HEMOGLOBIN 29.2 PG (27.0-31.0); MEAN CORPUSCULAR HGB CONC 33.4 g/dL (33.0-36.5); MEAN CORPUSCULAR VOLUME 87.5 FL (78-98); MEAN PLATELET VOLUME 7.8 FL (7.4-10.4); MONOCYTES % (AUTO) 10.3 % (2-12); NEUTROPHILS # (AUTO) 6.5 X10'3 (1.8-7.7); NEUTROPHILS % (AUTO) 70.8 % (42-75); PLATELET COUNT 183 X10'3 (140-440); WHITE BLOOD COUNT 9.2 X10'3 (4.5-11.0)
[2019-03-24 05:56] LABS: ALANINE AMINOTRANSFERASE 92 U/L (12-78); ALBUMIN 2.3 G/DL (3.4-5.0); ALBUMIN/GLOBULIN RATIO 0.6 (1.1-1.5); ALKALINE PHOSPHATASE 982 IU/L (46-116); ANION GAP 8 (8-16); ASPARTATE AMINO TRANSFERASE 83 U/L (10-37); BILIRUBIN,TOTAL 0.4 MG/DL (0.1-1.0); BLOOD UREA NITROGEN 22 MG/DL (7-18); BUN/CREATININE RATIO 24.4 (6.6-38.0); CALCIUM 8.4 MG/DL (8.5-10.1); CHLORIDE 104 MMOL/L (99-107); GLUCOSE 107 MG/DL (70-104); PHOSPHORUS 3.4 MG/DL (2.3-4.5); POTASSIUM 3.7 MMOL/L (3.5-5.1); SODIUM 138 MMOL/L (135-145); TOTAL CARBON DIOXIDE 26.4 MMOL/L (24-32); TOTAL PROTEIN 6.1 G/DL (6.4-8.2); eGFR 61 ML/MIN
[2019-03-24 06:00] VITALS: BP 144/74
--- NOTE | 2019-03-24 06:35 | NUR ---
Patient in room PCU 3028. I have received report from KATY Brito and had the opportunity to ask questions and assume patient care.
--- NOTE | 2019-03-24 06:50 | NUR ---
Problems reprioritized. Patient report given, questions answered & plan of care reviewed with Rishi BURNS.
[2019-03-24] MEDS: K and/or MAG REPLACEMENT MC SCH (07:22)
[2019-03-24] MEDS: magnesium hydroxide 30ml (MOM) UD suspension PO SCH (07:22)
[2019-03-24] MEDS: bisacodyl 10mg suppository rectal RC SCH (07:22)
[2019-03-24] MEDS: levoTHYROXINE 75mcg tablet PO SCH (07:27)
[2019-03-24] MEDS: pantoprazole 40mg Tablet.DR PO SCH (07:28)
[2019-03-24] MEDS: lactobacillus rhamnosus 10,000 MMU CELLS/CAPSULE PO SCH ×2 (07:28→21:49)
[2019-03-24] MEDS: aspirin 81mg tab.chew PO SCH (07:28)
[2019-03-24] MEDS: lisinopril 20mg tablet PO SCH ×2 (07:28→21:49)
[2019-03-24] MEDS: furosemide 40mg/4ml inj IV SCH (07:30)
[2019-03-24] MEDS: metroNIDAZOLE-Flagyl 500mg/NS 100 ML IV SCH ×2 (07:30→15:39)
[2019-03-24 11:00] VITALS: BP 126/68
[2019-03-24 15:00] VITALS: BP 102/72
[2019-03-24] MEDS: ondansetron/PF 4mg/2ml inj IV PRN (15:31)
--- NOTE | 2019-03-24 17:43 | NUR ---
PAGER ID: [phone] MESSAGE: [phone] Sonja Trammell had some emesis even after Zofran given 2 hrs ago can we try something else for N/V. KATY Blackwell Ext [phone]
[2019-03-24] MEDS ORDERED: proCHLORperazine 10 MG/2 ml inj IV PRN (17:45)
--- NOTE | 2019-03-24 18:18 | NUR ---
Problems reprioritized. Patient report given, questions answered & plan of care reviewed with KATY Patino.
[2019-03-24 18:30] VITALS: BP 139/90
--- NOTE | 2019-03-24 18:30 | NUR ---
Patient in room PCU 3028. I have received report from Rishi BURNS and had the opportunity to ask questions and assume patient care.
[2019-03-24] MEDS: atorvastatin 20mg tablet PO SCH (21:47)
[2019-03-24 23:00] VITALS: BP 107/38
[2019-03-25] MEDS: metroNIDAZOLE-Flagyl 500mg/NS 100 ML IV SCH ×4 (00:43→23:57)
[2019-03-25] MEDS: ciprofloxacin lact 400MG/200ML 200 ML IV SCH ×2 (02:01→13:22)
[2019-03-25] MEDS: hydrALAZINE 20mg/ml inj. IV SCH ×2 (02:11→08:00)
[2019-03-25 03:00] VITALS: BP 115/50
[2019-03-25] MEDS: normal saline 1000ml 1,000 ML IV SCH (05:16)
[2019-03-25 05:24] LABS: ALANINE AMINOTRANSFERASE 190 U/L (12-78); ALBUMIN 2.2 G/DL (3.4-5.0); ALBUMIN/GLOBULIN RATIO 0.6 (1.1-1.5); ANION GAP 10 (8-16); ASPARTATE AMINO TRANSFERASE 368 U/L (10-37); BILIRUBIN,TOTAL 2.2 MG/DL (0.1-1.0); BLOOD UREA NITROGEN 20 MG/DL (7-18); BUN/CREATININE RATIO 15.9 (6.6-38.0); CALCIUM 8.4 MG/DL (8.5-10.1); CHLORIDE 100 MMOL/L (99-107); CREATININE 1.26 MG/DL (0.40-0.90); GLUCOSE 133 MG/DL (70-104); PHOSPHORUS 3.6 MG/DL (2.3-4.5); POTASSIUM 3.5 MMOL/L (3.5-5.1); SODIUM 136 MMOL/L (135-145); TOTAL CARBON DIOXIDE 26.1 MMOL/L (24-32); TOTAL PROTEIN 5.8 G/DL (6.4-8.2); eGFR 41 ML/MIN
[2019-03-25 05:41] LABS: ALKALINE PHOSPHATASE 1595 IU/L (46-116)
[2019-03-25 06:30] VITALS: BP 134/65
--- NOTE | 2019-03-25 06:35 | NUR ---
Patient in room U 3028. I have received report from Bharti and had the opportunity to ask questions and assume patient care. Addendum: 03/25/19 at 0708 by Aviva Gay RN Patient resting comfortably during bedside report. No s/s of distress. Patient is requesting a Coke.
--- NOTE | 2019-03-25 07:10 | NUR ---
Patient in room U 3028. I have received report from KATY Scott and had the opportunity to ask questions and assume patient care. Addendum: 03/25/19 at 0712 by Carey GUTIERREZJOHNNY Report received from KATY White not KATY Scott
[2019-03-25] MEDS: levoTHYROXINE 75mcg tablet PO SCH (07:39)
[2019-03-25] MEDS: aspirin 81mg tab.chew PO SCH (07:40)
[2019-03-25] MEDS: lisinopril 20mg tablet PO SCH ×2 (07:41→20:40)
[2019-03-25] MEDS: pantoprazole 40mg Tablet.DR PO SCH (07:41)
[2019-03-25] MEDS: lactobacillus rhamnosus 10,000 MMU CELLS/CAPSULE PO SCH ×2 (07:41→20:39)
[2019-03-25] MEDS: magnesium hydroxide 30ml (MOM) UD suspension PO SCH (08:00)
[2019-03-25] MEDS: bisacodyl 10mg suppository rectal RC SCH (08:00)
[2019-03-25] MEDS: K and/or MAG REPLACEMENT MC SCH (08:00)
--- NOTE | 2019-03-25 08:34 | NUR ---
Patient refused Milk of Mag and Dulcolax suppository as she had a large BM yesterday. IV access was occluded and we attempted to gain IV access however both myself and tool inspector Andrea were not able to place an IV. Page sent to PICC RN. Will continue to monitor. Addendum: 03/25/19 at 1210 by Aviva Gay RN Spoke with Dr Bonilla regarding Milk of Mag and Dulcolax and he was okay with me holding these medications.
--- NOTE | 2019-03-25 08:45 | NUR ---
Spoke with Dr Bonilla regarding clarification of patient's apresoline order. Dr Bonilla states that order should be PRN not as a set give. Will reorder. Also notified Dr Bonilla that we are unable to give IV antibiotics or lasix at this time. Will give medication when PICC RN is able to place a line. Will continue to monitor. Addendum: 03/25/19 at 1214 by Aviva Gay RN PICC RN had difficulty placing an extended IV. Attempted 5 times and did not have success. She states that she will come back and place a true midline. Will continue to monitor. Addendum: 03/25/19 at 1215 by Aviva Gay RN Midline now in place. AM antibiotics and lasix given.
[2019-03-25 11:00] VITALS: BP 149/76
[2019-03-25] MEDS: furosemide 40mg/4ml inj IV SCH (12:00)
[2019-03-25] MEDS ORDERED: hydrALAZINE 20mg/ml inj. IV PRN (12:20)
[2019-03-25 15:00] VITALS: BP 137/60
[2019-03-25 18:00] VITALS: BP 129/40
--- NOTE | 2019-03-25 18:22 | NUR ---
Student documentation: I have reviewed and agree with all interventions, assessments performed and documented by Carey GATICA. Student Medication Administration: For this medication-pass time frame, all medication were reviewed, dispensed, administered and documented per hospital policy by Carey GATICA.
--- NOTE | 2019-03-25 18:23 | NUR ---
Problems reprioritized. Patient report given, questions answered & plan of care reviewed with Sharlene BURNS and Carolina BURNS.
--- NOTE | 2019-03-25 18:30 | NUR ---
Patient in room PCU 3028. I have received report from Aviva BURNS and had the opportunity to ask questions and assume patient care with Carolina BURNS.
[2019-03-25] MEDS: atorvastatin 20mg tablet PO SCH (20:39)
[2019-03-25 22:00] VITALS: BP 122/61
[2019-03-26] VITALS (7 sets, daily range): BP systolic 108–148; BP diastolic 55–67
[2019-03-26] MEDS: ciprofloxacin lact 400MG/200ML 200 ML IV SCH ×2 (01:08→12:36)
[2019-03-26 04:25] LABS: ALANINE AMINOTRANSFERASE 149 U/L (12-78); ALBUMIN 2.4 G/DL (3.4-5.0); ALBUMIN/GLOBULIN RATIO 0.6 (1.1-1.5); ANION GAP 12 (8-16); ASPARTATE AMINO TRANSFERASE 162 U/L (10-37); BLOOD UREA NITROGEN 20 MG/DL (7-18); BUN/CREATININE RATIO 15.9 (6.6-38.0); CALCIUM 8.3 MG/DL (8.5-10.1); CHLORIDE 99 MMOL/L (99-107); CREATININE 1.26 MG/DL (0.40-0.90); GLUCOSE 191 MG/DL (70-104); PHOSPHORUS 3.1 MG/DL (2.3-4.5); POTASSIUM 3.2 MMOL/L (3.5-5.1); SODIUM 135 MMOL/L (135-145); TOTAL CARBON DIOXIDE 24.5 MMOL/L (24-32); TOTAL PROTEIN 6.2 G/DL (6.4-8.2); eGFR 41 ML/MIN
[2019-03-26 04:27] LABS: ALKALINE PHOSPHATASE 1471 IU/L (46-116)
--- NOTE | 2019-03-26 05:47 | NUR ---
patient had initially not eaten any dinner. After removing her uneaten tray, she then stated she was hungry. Egg salad sandwich was ordered and she ate all of it. pt rested throughout the night, refused repositioning a few times.
--- NOTE | 2019-03-26 05:59 | NUR ---
Problems reprioritized. Patient report given, questions answered & plan of care reviewed with Aviva BURNS.
--- NOTE | 2019-03-26 06:05 | NUR ---
Patient in room PCU 3028. I have received report from Jordyn and had the opportunity to ask questions and assume patient care.
--- NOTE | 2019-03-26 06:36 | NUR ---
Orientee documentation: I have reviewed and agree with all interventions, meds given, assessments performed and documented by Carolina BURNS.
[2019-03-26] MEDS: levoTHYROXINE 75mcg tablet PO SCH (07:00)
[2019-03-26] MEDS: pantoprazole 40mg Tablet.DR PO SCH (07:30)
[2019-03-26] MEDS: bisacodyl 10mg suppository rectal RC SCH (08:00)
[2019-03-26] MEDS: magnesium hydroxide 30ml (MOM) UD suspension PO SCH (08:00)
[2019-03-26] MEDS: K and/or MAG REPLACEMENT MC SCH (08:00)
[2019-03-26] MEDS: metroNIDAZOLE-Flagyl 500mg/NS 100 ML IV SCH (08:30)
[2019-03-26] MEDS: furosemide 40mg/4ml inj IV SCH (08:30)
[2019-03-26] MEDS: aspirin 81mg tab.chew PO SCH (08:30)
[2019-03-26] MEDS: lisinopril 20mg tablet PO SCH ×2 (08:31→19:53)
[2019-03-26] MEDS: lactobacillus rhamnosus 10,000 MMU CELLS/CAPSULE PO SCH ×2 (08:31→19:53)
--- NOTE | 2019-03-26 08:32 | NUR ---
Meds were scanned and given at the bedside, however the computer during administration and the medications did not save. Manually administered medications.
[2019-03-26 10:51] LABS: ABG BASE EXCESS -3.2 mmol/L (-2.0-3.0); ABG HCO3 20.4 mmol/L (22.0-26.0); ABG PCO2 (T) 31.5 mmHg (35.0-45.0); ABG PH (T) 7.429 (7.350-7.450); ABG PO2 (T) 82.1 mmHg (83-108); ALLEN'S TEST Positive; FCOHb 0.3 % (0.5-1.5); FMetHb 0.2 % (0.3-1.12); FO2Hb 95.5 % (94-100)
--- NOTE | 2019-03-26 12:48 | NUR ---
Paged Dr Bonilla "PAGER ID: [phone] MESSAGE: [phone] Aviva [phone] Sonja Trammell the patient has been accepted at [facility] for surgery on Monday and should transfer on . Do you still want her NPO?"
--- NOTE | 2019-03-26 14:02 | NUR ---
Reassessment: Patient continues with mechanical soft, chopped foods and thin liquids per INTERNET SALES DIRECTOR recs. Per order history patient is NPO now. Eating poorly for three days with refusals and 0-25% average intake. Patient is s/p lap cholecystectomy after admitted with gallstone pancreatitis, per MD note patient is planning on transfer to [facility] [place] this . When no longer NPO patient may benefit from ONS in view of suboptimal PO Intake. Rec: 1. Resume mechanical soft diet with chopped foods when OK by MD 2. monitor for ONS needs, may need in view of poor intake 3. bowel care as needed 4. weekly wts Addendum: 03/26/19 at [address] Amended: Links added.
[2019-03-26] MEDS: potassium Cl 20 mEq SR tablet PO PRN ×2 (14:34→19:53)
--- NOTE | 2019-03-26 17:02 | NUR ---
Problems reprioritized. Patient report given, questions answered & plan of care reviewed with Natasha RN.
--- NOTE | 2019-03-26 18:20 | NUR ---
Problems reprioritized. Patient report given, questions answered & plan of care reviewed with KATY Su and KATY Figueroa.
--- NOTE | 2019-03-26 18:30 | NUR ---
Patient in room PCU 3028. I have received report from Natasha BURNS and Aviva BURNS and had the opportunity to ask questions and assume patient care.
--- NOTE | 2019-03-26 18:30 | NUR ---
Patient in room PCU 3028. I have received report from Aviva and Natasha RNs and had the opportunity to ask questions and assume patient care with Carolina BURNS.
[2019-03-26] MEDS: atorvastatin 20mg tablet PO SCH (19:53)
[2019-03-27] MEDS: potassium Cl 20 mEq SR tablet PO PRN (00:31)
[2019-03-27] MEDS: ciprofloxacin lact 400MG/200ML 200 ML IV SCH ×2 (00:31→13:11)
[2019-03-27 02:00] VITALS: BP 142/64
[2019-03-27] MEDS: normal saline 1000ml 1,000 ML IV SCH (05:16)
--- NOTE | 2019-03-27 05:41 | NUR ---
oRIENTEE documentation: I have reviewed and agree with all interventions, MEDS GIVEN, assessments performed and documented by ABRAHAM BURNS.
--- NOTE | 2019-03-27 05:41 | NUR ---
PT RESTED THROUGH THE NIGHT. SHE REFUSED TURNS SEVERAL TIMES.
[2019-03-27 06:00] VITALS: BP 121/55
--- NOTE | 2019-03-27 06:19 | NUR ---
Problems reprioritized. Patient report given, questions answered & plan of care reviewed with Suly rn.
--- NOTE | 2019-03-27 06:19 | NUR ---
Patient in room PCU 3026. I have received report from KATY Su and KATY Figueroa and had the opportunity to ask questions and assume patient care. Pt sleeping. Will continue to monitor.
--- NOTE | 2019-03-27 06:21 | NUR ---
Problems reprioritized. Patient report given, questions answered & plan of care reviewed with Natasha RN.
[2019-03-27] MEDS: levoTHYROXINE 75mcg tablet PO SCH (07:00)
[2019-03-27] MEDS: K and/or MAG REPLACEMENT MC SCH (08:00)
[2019-03-27] MEDS: pantoprazole 40mg Tablet.DR PO SCH (08:32)
[2019-03-27] MEDS: furosemide 40mg/4ml inj IV SCH (08:32)
[2019-03-27] MEDS: lactobacillus rhamnosus 10,000 MMU CELLS/CAPSULE PO SCH ×2 (08:32→21:30)
[2019-03-27] MEDS: aspirin 81mg tab.chew PO SCH (08:32)
[2019-03-27] MEDS: lisinopril 20mg tablet PO SCH ×2 (08:33→21:38)
[2019-03-27] MEDS: bisacodyl 10mg suppository rectal RC SCH (08:33)
[2019-03-27] MEDS: magnesium hydroxide 30ml (MOM) UD suspension PO SCH (08:33)
[2019-03-27 15:00] VITALS: BP 180/72
--- NOTE | 2019-03-27 16:51 | NUR ---
reassessment: Pt PO 0-25% meals past 6 days not meeting needs. Remains AOx2. Ensure pudding TIDWM added for additional needs. Per MD note plans to transfer [place] [facility] [place] procedure tomorrow. Given pt mild weakness, mild edemas, and low PO hx pt qualifies for non-severe malnutrition at this time; MD notified. Pt not appropriate for malnutrition ed at this time. [facility] 03/25. Will continue to monitor. Rec: 1. Resume mechanical soft diet with chopped foods when OK by MD; encourage PO 2. ensure pudding TIDWM 3. bowel care as needed 4. weekly wts Addendum: 03/27/19 at [address] Amended: Links added.
[2019-03-27 18:00] VITALS: BP 122/93
--- NOTE | 2019-03-27 18:00 | NUR ---
Problems reprioritized. Patient report given, questions answered & plan of care reviewed with KATY Fiore.
[2019-03-27 19:20] VITALS: BP 169/86
--- NOTE | 2019-03-27 19:20 | NUR ---
Patient found sitting on floor in room. Assisted back into bed. Denied hitting head or any pain. No visible wounds noted. Vital signs stable, patient could not recall what she was trying to do. Dr. Montana notified. Will continue to monitor.
[2019-03-27] MEDS: ondansetron/PF 4mg/2ml inj IV PRN (21:30)
[2019-03-27] MEDS: atorvastatin 20mg tablet PO SCH (21:30)
[2019-03-27 22:00] VITALS: BP 135/71
[2019-03-28] MEDS: ciprofloxacin lact 400MG/200ML 200 ML IV SCH (01:36)
[2019-03-28 02:00] VITALS: BP 149/63
[2019-03-28 06:00] VITALS: BP 167/74
--- NOTE | 2019-03-28 06:00 | NUR ---
Patient in room PCU 3028. I have received report from Jemima BURNS and had the opportunity to ask questions and assume patient care.
[2019-03-28 06:30] VITALS: BP 166/72
--- NOTE | 2019-03-28 06:39 | NUR ---
Problems reprioritized. Patient report given, questions answered & plan of care reviewed with Maryjane BURNS.
[2019-03-28] MEDS: bisacodyl 10mg suppository rectal RC SCH (07:32)
[2019-03-28] MEDS: furosemide 40mg/4ml inj IV SCH (07:32)
--- NOTE | 2019-03-28 08:00 | NUR ---
Oral meds held for procedure, pt to be transferred this morning.
--- NOTE | 2019-03-28 09:10 | NUR ---
Patient transferred stable to [facility]. Report given to Josie. No personal belongings found. No clothing found. Transfer packet given to [facility] staff. Patient leaving with Left Upper Arm midline which is saline locked and dressing intact. No redness or swelling noted. Midline was placed 03/25/2019. Patient transported by ambulance accompanied by [facility] staff.
== END 2019-03-28 09:20 | disposition short-term general hospital (02) | DRG 853 ==
LOC: ER 05:02 → SUR 3N 09:15 → CICU 2S 03-19 22:45 → PCU 3S 03-22 13:52
PROVIDERS: ADMIT Hospitalist; ATTEND Family Medicine
PROC: 0FJD8ZZ Inspection of Pancreatic Duct, Via Natural or Artificial Opening Endoscopic (ICD-10-PCS; 2019-03-14)
PROC: BF181ZZ Fluoroscopy of Pancreatic Ducts using Low Osmolar Contrast (ICD-10-PCS; 2019-03-14)
PROC: 0DNW4ZZ Release Peritoneum, Percutaneous Endoscopic Approach (ICD-10-PCS; 2019-03-19)
PROC: 5A1945Z Respiratory Ventilation, 24-96 Consecutive Hours (ICD-10-PCS; 2019-03-19)
PROC: 03HY32Z Insertion of Monitoring Device into Upper Artery, Percutaneous Approach (ICD-10-PCS; 2019-03-19)
PROC: 02HV33Z Insertion of Infusion Device into Superior Vena Cava, Percutaneous Approach (ICD-10-PCS; 2019-03-19)
PROC: B548ZZA Ultrasonography of Superior Vena Cava, Guidance (ICD-10-PCS; 2019-03-19)
PROC: 0FT44ZZ Resection of Gallbladder, Percutaneous Endoscopic Approach (ICD-10-PCS; principal; 2019-03-19 20:02)
PROC: 0W9B3ZZ Drainage of Left Pleural Cavity, Percutaneous Approach (ICD-10-PCS; 2019-03-20)
DX: A41.9 Sepsis, unspecified organism (principal); K85.10 Biliary acute pancreatitis without necrosis or infection; J96.00 Acute respiratory failure, unspecified whether with hypoxia or hypercapnia; N17.9 Acute kidney failure, unspecified; K92.0 Hematemesis; J91.8 Pleural effusion in other conditions classified elsewhere; K80.70 Calculus of gallbladder and bile duct without cholecystitis without obstruction; E83.52 Hypercalcemia; K66.0 Peritoneal adhesions (postprocedural) (postinfection); F32.9 Major depressive disorder, single episode, unspecified; F41.9 Anxiety disorder, unspecified; E03.9 Hypothyroidism, unspecified; E78.5 Hyperlipidemia, unspecified; F03.90 Unspecified dementia, unspecified severity, without behavioral disturbance, psychotic disturbance, mood disturbance, and anxiety; F12.90 Cannabis use, unspecified, uncomplicated; R74.0 Nonspecific elevation of levels of transaminase and lactic acid dehydrogenase [LDH]; I10 Essential (primary) hypertension; E87.6 Hypokalemia; J45.909 Unspecified asthma, uncomplicated; K86.89 Other specified diseases of pancreas; Z86.73 Personal history of transient ischemic attack (TIA), and cerebral infarction without residual deficits; Z90.710 Acquired absence of both cervix and uterus; Z99.3 Dependence on wheelchair; Z74.01 Bed confinement status; Z88.2 Allergy status to sulfonamides; Z88.8 Allergy status to other drugs, medicaments and biological substances; Z98.891 History of uterine scar from previous surgery; Z79.899 Other long term (current) drug therapy; Z79.82 Long term (current) use of aspirin; Z79.890 Hormone replacement therapy
CPT/HCPCS: 32555; 36415; 36600; 43260; 71045; 74176; 76700; 76705; 76937; 80053; 81003; 82803; 82948; 83605; 83690; 83735; 84100; 84132; 84443; 85018; 85025; 85610; 85730; 86885; 86900; 86901; 87040; 87070; 87081; 88304; 92508; 92616; 93005; 94002; 94003; 94640; 94668; 94760; 96365; 96366; 96368; 97110; 97116; 97162; 97164; 97530; 99152; 99153; 99285; A4215; A4618; A4620; A6402; A7000; C1751; C1769; C9113; G0378; J0360; J0690; J0744; J0780; J1100; J1200; J1610; J1644; J1940; J1956; J2001; J2060; J2250; J2270; J2405; J2710; J3010; J3480; J3490; J7030; J7040; J7120; Q9967

== ENCOUNTER 2019-04-01 12:39 | Inpatient (IN) | payer MEDICARE, OTHER ==
[~2019-04-01] VITALS: Ht 167.6 cm; Wt 79.6 kg
[~2019-04-01 12:39] MED LIST changes: +ACET650T11 PO; +AMLO-93 PO; +ASPI-1265 PO; +ATOR20TA PO; +BISA10SU60 PR; +HEPA500015 IJ; +LEVO150T8 PO; +LISI-600 PO; +MAGN400O6 PO; -NO HOME MEDS
[2019-04-01] MEDS: normal saline 1000ml 1,000 ML IV SCH (23:46)
[2019-04-01] MEDS ORDERED: ondansetron/PF 4mg/2ml inj IV PRN (23:50)
[2019-04-01] MEDS ORDERED: magnesium hydroxide 30ml (MOM) UD suspension PO PRN (23:50)
[2019-04-01] MEDS ORDERED: acetaminophen 325mg tablet PO PRN (23:50)
[2019-04-01] MEDS ORDERED: mag hydrox/Alum hydrox/simeth 30ml oral suspension PO PRN (23:50)
[2019-04-02] VITALS: BP 139/46
[2019-04-02 06:23] LABS: BASOPHILS % (AUTO) 0.8 % (0-1); EOSINOPHILS # (AUTO) 1.1 X10'3 (0-0.9); EOSINOPHILS % (AUTO) 18.5 % (0-6); HEMATOCRIT 25.1 % (35.0-45.0); HEMOGLOBIN 8.5 g/dl (12.0-16.0); LYMPHOCYTES # (AUTO) 1.5 X10'3 (1.1-4.8); LYMPHOCYTES % (AUTO) 25.5 % (21-51); MEAN CORPUSCULAR HEMOGLOBIN 28.9 PG (27.0-31.0); MEAN CORPUSCULAR HGB CONC 33.7 g/dL (33.0-36.5); MEAN CORPUSCULAR VOLUME 85.5 FL (78-98); MEAN PLATELET VOLUME 7.9 FL (7.4-10.4); MONOCYTES # (AUTO) 0.4 X10'3 (0-0.9); MONOCYTES % (AUTO) 7.6 % (2-12); NEUTROPHILS # (AUTO) 2.7 X10'3 (1.8-7.7); NEUTROPHILS % (AUTO) 47.6 % (42-75); PLATELET COUNT 217 X10'3 (140-440); RED BLOOD COUNT 2.93 X10'6 (4.20-5.60); WHITE BLOOD COUNT 5.7 X10'3 (4.5-11.0)
[2019-04-02 06:56] LABS: ALANINE AMINOTRANSFERASE 55 U/L (12-78); ALBUMIN 2.1 G/DL (3.4-5.0); ALBUMIN/GLOBULIN RATIO 0.6 (1.1-1.5); ALKALINE PHOSPHATASE 820 IU/L (46-116); ANION GAP 9 (8-16); ASPARTATE AMINO TRANSFERASE 35 U/L (10-37); BILIRUBIN,TOTAL 0.7 MG/DL (0.1-1.0); BLOOD UREA NITROGEN 5 MG/DL (7-18); BUN/CREATININE RATIO 6.3 (6.6-38.0); CALCIUM 8.5 MG/DL (8.5-10.1); CHLORIDE 107 MMOL/L (99-107); GLUCOSE 92 MG/DL (70-104); POTASSIUM 3.6 MMOL/L (3.5-5.1); SODIUM 140 MMOL/L (135-145); TOTAL CARBON DIOXIDE 23.8 MMOL/L (24-32); TOTAL PROTEIN 5.9 G/DL (6.4-8.2); eGFR 70 ML/MIN
[2019-04-02 07:00] VITALS: BP 152/57
[2019-04-02 07:28] LABS: LIPASE 2516 U/L (73-393)
[2019-04-02] MEDS ORDERED: lisinopril 20mg tablet PO SCH (08:00)
[2019-04-02] MEDS: aspirin 81mg tab.chew PO SCH (08:08)
[2019-04-02] MEDS: lisinopril 20mg tablet PO SCH ×2 (08:08→20:10)
[2019-04-02] MEDS: amLODIPine 5mg tablet PO SCH (08:08)
[2019-04-02] MEDS: heparin, porcine 5000 units/ml vial SQ SCH ×2 (08:09→20:09)
[2019-04-02] MEDS: levoTHYROXINE 75mcg tablet PO SCH (08:10)
--- NOTE | 2019-04-02 10:09 | NUR ---
Shannan replaced per protocol. Patient tolerated well Addendum: 04/02/19 at 1009 by Valencia Laguna RN Amended: Links added.
[2019-04-02] MEDS ORDERED: potassium CL 10mEq/100ml bag 100 ML IV PRN (10:30)
[2019-04-02] MEDS ORDERED: magnesium 4gm in 100ml NS 100 ML IV PRN (10:30)
[2019-04-02] MEDS ORDERED: potassium Cl 20 mEq SR tablet PO PRN (10:30)
[2019-04-02 11:00] VITALS: BP 162/76
[2019-04-02] MEDS: normal saline 1000ml 1,000 ML IV SCH (16:37)
--- NOTE | 2019-04-02 17:29 | NUR ---
Notified Dr. White that patient is on the unit and returned from [facility], orders to remove carlos enrique.
[2019-04-02 18:00] VITALS: BP 180/99
[2019-04-02] MEDS ORDERED: atorvastatin 20mg tablet PO SCH (21:00)
--- NOTE | 2019-04-02 22:14 | NUR ---
Patient in room MEHUL 356. I have received report from KATY [place] and had the opportunity to ask questions and assume patient care. Addendum: 04/02/19 at 2215 by Alisha Weller RN Amended: Links added.
[2019-04-03 00:44] VITALS: BP 159/92
[2019-04-03 04:54] LABS: BASOPHILS % (AUTO) 0.9 % (0-1); EOSINOPHILS # (AUTO) 0.9 X10'3 (0-0.9); EOSINOPHILS % (AUTO) 16.4 % (0-6); HEMATOCRIT 25.3 % (35.0-45.0); HEMOGLOBIN 8.5 g/dl (12.0-16.0); LYMPHOCYTES # (AUTO) 1.4 X10'3 (1.1-4.8); LYMPHOCYTES % (AUTO) 26.5 % (21-51); MEAN CORPUSCULAR HEMOGLOBIN 28.8 PG (27.0-31.0); MEAN CORPUSCULAR HGB CONC 33.7 g/dL (33.0-36.5); MEAN CORPUSCULAR VOLUME 85.4 FL (78-98); MEAN PLATELET VOLUME 7.6 FL (7.4-10.4); MONOCYTES # (AUTO) 0.5 X10'3 (0-0.9); MONOCYTES % (AUTO) 10.1 % (2-12); NEUTROPHILS # (AUTO) 2.4 X10'3 (1.8-7.7); NEUTROPHILS % (AUTO) 46.1 % (42-75); PLATELET COUNT 190 X10'3 (140-440); RED BLOOD COUNT 2.96 X10'6 (4.20-5.60); WHITE BLOOD COUNT 5.3 X10'3 (4.5-11.0)
[2019-04-03 05:11] LABS: ALANINE AMINOTRANSFERASE 44 U/L (12-78); ALBUMIN 2.1 G/DL (3.4-5.0); ALBUMIN/GLOBULIN RATIO 0.6 (1.1-1.5); ALKALINE PHOSPHATASE 694 IU/L (46-116); ANION GAP 9 (8-16); ASPARTATE AMINO TRANSFERASE 29 U/L (10-37); BILIRUBIN,TOTAL 0.6 MG/DL (0.1-1.0); BLOOD UREA NITROGEN 7 MG/DL (7-18); BUN/CREATININE RATIO 10.1 (6.6-38.0); CHLORIDE 107 MMOL/L (99-107); CREATININE 0.69 MG/DL (0.40-0.90); GLUCOSE 99 MG/DL (70-104); MAGNESIUM 1.2 MG/DL (1.5-2.4); PHOSPHORUS 3.4 MG/DL (2.3-4.5); POTASSIUM 3.4 MMOL/L (3.5-5.1); SODIUM 140 MMOL/L (135-145); TOTAL CARBON DIOXIDE 23.9 MMOL/L (24-32); TOTAL PROTEIN 5.5 G/DL (6.4-8.2); eGFR 83 ML/MIN
[2019-04-03 05:12] LABS: LIPASE 2032 U/L (73-393)
--- NOTE | 2019-04-03 06:07 | NUR ---
Problems reprioritized. Patient report given, questions answered & plan of care reviewed with KATY Quiroz. Addendum: 04/03/19 at 0607 by Alisha Weller RN Amended: Links added.
--- NOTE | 2019-04-03 06:26 | NUR ---
Patient in room MEHUL 356. I have received report from KATY Zepeda and had the opportunity to ask questions and assume patient care.
[2019-04-03 07:00] VITALS: BP 182/70
[2019-04-03] MEDS: amLODIPine 5mg tablet PO SCH (07:43)
[2019-04-03] MEDS: levoTHYROXINE 75mcg tablet PO SCH (07:43)
[2019-04-03] MEDS: lisinopril 20mg tablet PO SCH (07:43)
[2019-04-03] MEDS: potassium Cl 20 mEq SR tablet PO PRN ×3 (07:43→17:11)
[2019-04-03] MEDS: aspirin 81mg tab.chew PO SCH (07:43)
[2019-04-03] MEDS: normal saline 1000ml 1,000 ML IV SCH (07:44)
[2019-04-03] MEDS: heparin, porcine 5000 units/ml vial SQ SCH (07:44)
[2019-04-03] MEDS: magnesium Cl slow-release 64mg tablet PO PRN ×2 (07:44→17:11)
[2019-04-03 11:00] VITALS: BP 147/63
--- NOTE | 2019-04-03 17:30 | NUR ---
Patient discharged back to [facility] and taken from unit via [facility]. Patient at baseline orientation at time of discharge. Patient did not have any belongings here. PICC removed with cannula intact. Report called to accepting facility.
== END 2019-04-03 17:29 | disposition short-term general hospital (02) | DRG 444 ==
LOC: SUR 3N 21:46
PROVIDERS: ADMIT Hospitalist; ATTEND Family Medicine
DX: K80.50 Calculus of bile duct without cholangitis or cholecystitis without obstruction (principal); K85.10 Biliary acute pancreatitis without necrosis or infection; N17.9 Acute kidney failure, unspecified; E78.5 Hyperlipidemia, unspecified; I10 Essential (primary) hypertension; R74.0 Nonspecific elevation of levels of transaminase and lactic acid dehydrogenase [LDH]; E03.9 Hypothyroidism, unspecified; Z86.73 Personal history of transient ischemic attack (TIA), and cerebral infarction without residual deficits; Z90.49 Acquired absence of other specified parts of digestive tract; Z99.3 Dependence on wheelchair; Z88.2 Allergy status to sulfonamides; Z88.8 Allergy status to other drugs, medicaments and biological substances
CPT/HCPCS: 36415; 80053; 83690; 83735; 84100; 85025; 87081; 97161; 97530; G0378; J1644; J7030

== ENCOUNTER 2019-12-03 16:28 | Emergency (ER) | payer MEDICARE ==
[~2019-12-03] VITALS: Ht 152.4 cm; Wt 67.7 kg
[~2019-12-03 16:28] MED LIST changes: -HEPA500015 IJ
[2019-12-03] MEDS ORDERED: normal saline 1000ML IV soln IVB ONE (16:45)
[2019-12-03 17:25] LABS: CLARITY,URINE CLOUDY (Clear); COLOR,URINE YELLOW (Yellow); GLUCOSE, URINE NEGATIVE (Neg); KETONES,URINE NEGATIVE (Neg); LEUKOCYTE ESTERASE ,URINE TRACE (Neg); NITRITES, URINE POSITIVE (Neg); OCCULT BLOOD,URINE NEGATIVE (Neg); PH,URINE 6.5 (4.8-8.0); PROTEIN,URINE NEGATIVE (Neg); UROBILINOGEN,URINE 0.2 E.U/dL (0.2-1.0)
--- NOTE | 2019-12-03 17:31 | NUR ---
rcvd call from pt son, Amrik Walker [phone] says mom has been off of her psych meds for bipolar for two years and that his brother Darshan Trammell [phone] is poa and will need to be called for any transportation back to her long term
[2019-12-03 17:40] LABS: BASOPHILS % (AUTO) 0.6 % (0-1); EOSINOPHILS # (AUTO) 0.1 X10'3 (0-0.9); EOSINOPHILS % (AUTO) 1.8 % (0-6); HEMATOCRIT 39.6 % (35.0-45.0); HEMOGLOBIN 13.4 g/dl (12.0-16.0); LYMPHOCYTES # (AUTO) 1.2 X10'3 (1.1-4.8); LYMPHOCYTES % (AUTO) 19.1 % (21-51); MEAN CORPUSCULAR HEMOGLOBIN 27.5 PG (27.0-31.0); MEAN CORPUSCULAR HGB CONC 33.9 g/dL (33.0-36.5); MEAN CORPUSCULAR VOLUME 81.1 FL (78-98); MEAN PLATELET VOLUME 7.9 FL (7.4-10.4); MONOCYTES # (AUTO) 0.6 X10'3 (0-0.9); MONOCYTES % (AUTO) 9.2 % (2-12); NEUTROPHILS # (AUTO) 4.5 X10'3 (1.8-7.7); NEUTROPHILS % (AUTO) 69.3 % (42-75); PLATELET COUNT 211 X10'3 (140-440); RED BLOOD COUNT 4.89 X10'6 (4.20-5.60); RED CELL DISTRIBUTION WIDTH 13.3 % (11.5-14.5); WHITE BLOOD COUNT 6.5 X10'3 (4.5-11.0)
[2019-12-03 17:42] LABS: UA COLLECTION TYPE STRAIGHT CATH
[2019-12-03 17:44] LABS: BACTERIA,URINE 4+ /HPF (Neg); RBC,URINE 0-2 /HPF (0-2); SQUAMOUS EPITHELIAL CELL,UR MODERATE /LPF (FEW)
[2019-12-03 17:56] LABS: ALANINE AMINOTRANSFERASE 46 U/L (12-78); ALBUMIN 3.5 G/DL (3.4-5.0); ALBUMIN/GLOBULIN RATIO 0.9 (1.1-1.5); ALKALINE PHOSPHATASE 143 IU/L (46-116); ANION GAP 10 (8-16); ASPARTATE AMINO TRANSFERASE 38 U/L (10-37); BILIRUBIN,TOTAL 0.5 MG/DL (0.1-1.0); BLOOD UREA NITROGEN 14 MG/DL (7-18); BUN/CREATININE RATIO 13.2 (6.6-38.0); CALCIUM 9.7 MG/DL (8.5-10.1); CHLORIDE 108 MMOL/L (99-107); CREATININE 1.06 MG/DL (0.40-0.90); GLUCOSE 158 MG/DL (70-104); POTASSIUM 3.5 MMOL/L (3.5-5.1); SODIUM 143 MMOL/L (135-145); TOTAL CARBON DIOXIDE 24.6 MMOL/L (24-32); TOTAL PROTEIN 7.3 G/DL (6.4-8.2); eGFR 50 ML/MIN
[2019-12-03] MEDS ORDERED: cephalexin 250mg capsule PO ONE (18:00)
[2019-12-03] MEDS ORDERED: CEPH250T PO (18:01)
--- NOTE | 2019-12-03 18:21 | NUR ---
Call to Amrik Walker at this time to roller picker patient, stated he will have his come pick her up.
[2019-12-03 18:22] VITALS: BP 129/66
--- NOTE | 2019-12-08 11:35 | NUR ---
PT'S SON CALLED AND WAS NOTIFIED THAT PT IS LIVING AT [facility]. [facility] CALLED AND SPOKE WITH YOMI, INFORMED HER THAT PT HAS A UTI AND THAT THE KEFLEX THAT WAS ORIGINALLY ORDERED IS TO BE CHANGED TO CIPRO AND TO STOP TAKING KEFLEX. REQUESTED THAT RX BE CALLED INTO [facility]. CIPRO 500MG, PO BID x 5DAYS CALLED IN REQUESTED.
== END 2019-12-03 18:23 | disposition home or self-care (01) ==
LOC: ER 16:29
DX: N39.0 Urinary tract infection, site not specified (principal); I10 Essential (primary) hypertension; J45.909 Unspecified asthma, uncomplicated; F41.9 Anxiety disorder, unspecified; F31.9 Bipolar disorder, unspecified; F12.90 Cannabis use, unspecified, uncomplicated; Z86.73 Personal history of transient ischemic attack (TIA), and cerebral infarction without residual deficits; Z90.49 Acquired absence of other specified parts of digestive tract; Z90.710 Acquired absence of both cervix and uterus; Z98.890 Other specified postprocedural states; Z88.2 Allergy status to sulfonamides; Z88.8 Allergy status to other drugs, medicaments and biological substances; Z79.82 Long term (current) use of aspirin; Z79.899 Other long term (current) drug therapy
CPT/HCPCS: 36415; 80053; 81001; 85025; 87077; 87088; 87186; 93005; 99284; J7030